=== PATIENT | female | born 1940 | race Caucasian/White ===

== ENCOUNTER 2024-05-04 22:37 | Inpatient (IN) | payer OTHER, SELFPAY ==
--- NOTE | ~2024-05-04 | XR_ITS ---
XR chest PICC line Ordering provider: Elena Hirsch APRN History: 83 years Female with . PICC line placement . Comparison: None. FINDINGS: MEDIASTINUM: The cardiac silhouette is not enlarged. Left PICC line with the tip overlying superior vena cava. LUNGS: No infiltrates, effusions or pneumothorax. Prominent markings are seen bilaterally. Interstiti al thickening is also noted. OTHER: No free air under the diaphragm. Degenerative the spine. IMPRESSION: Left PICC line with the tip overlying superior vena cava. Prominent markings with interstitial changes. Pneumonitis cannot be excluded. Reviewed, dictated and finalized at location A.
--- NOTE | ~2024-05-04 | CT_ITS ---
EXAMINATION: CT brain wo con DATE: 05/05/2024 11:08 INDICATION: Dizziness, nausea, vomiting and hypertension. TECHNIQUE: Computed tomography (CT) of the head was performed without intravenous contrast. Sagittal and coronal reconstructions were performed. The mA was adjusted according to patient size. Iterative reconstruction technique was employed. The dose-length product was 756.67 mGy-cm. COMPARISON: head CT dated 05/04/2024 FINDINGS: No acute intracranial hemorrhage, acute infarction or abnormal extra axial fluid collection. Small ol d lacunar infarct at the left caudate nucleus. There is mild scattered white matter hypoattenuation c onsistent with chronic small vessel ischemic disease. Ventricles are normal and symmetric. No mass/ma ss effect. Intracranial calcified cerebral atherosclerosis is noted. The orbits, paranasal sinuses an d mastoid air cells are normal. IMPRESSION: 1. Small old lacunar infarct at the head of the left caudate nucleus. No acute intracranial process. 2. Mild scattered white matter hypoattenuation consistent with chronic small vessel ischemic disease. Reviewed, dictated and finalized at location A. IMPRESSION: 1. Small old lacunar infarct at the head of the left caudate nucleus. No acute intracranial process. 2. Mild scattered white matter hypoattenuation consistent with chronic small ve ssel ischemic disease.
--- NOTE | ~2024-05-04 | CT_ITS ---
CT brain wo con Ordering provider: Nel Ricks MD History: 83 years Female with . r/o bleed . Comparison: None. Technique: CT of the head without contrast. Radiation reduction technique utilized. FINDINGS: BRAIN PARENCHYMA AND CSF SPACES: Mild leukoaraiosis and diffuse cortical atrophy. Mild atheromatous d isease. No midline shift, mass effect or hemorrhage. The brain parenchyma and CSF spaces are otherwi se normal. VISUALIZED PARANASAL SINUSES: Normal. MASTOIDS: Normal. BONES: Normal. SOFT TISSUES: Visualized nasopharynx is normal. Superficial soft tissues are normal. IMPRESSION: No acute intracranial findings. IMPRESSION: No acute intracranial findings. Reviewed, dictated and finalized at location A. IMPRESSION: No acute intracranial findings.
--- NOTE | ~2024-05-04 | XR_ITS ---
MODIFIED ESOPHAGRAM HISTORY: Recent stroke with dysphagia. TECHNIQUE: Modified barium esophagram was performed on 05/07/2024. I administered fluoroscopy and perf ormed the exam with speech pathologist. Patient was seated for lateral fluoroscopic imaging for prem stion of thin liquids, pudding, solids and quantified amounts, followed by thin liquids in uncontroll ed amounts. This was recorded on tape. A single fluoroscopic spot image was also recorded. The DAP fo r this procedure was 1.047 Gycm2. The amount of fluoroscopy time used during this procedure was 1.3 m inutes. FINDINGS: Oral stage: Adequate function. Pharyngeal stage: Reduced laryngeal elevation, laryngeal adduction and tongue base retraction. There is laryngeal penetration and aspiration with multiple consistencies. Cervical/esophageal stage: Adequate function. IMPRESSION: Enteral dysphagia with laryngeal penetration and aspiration with multiple consistencies. Please correlate with speech pathologist findings and specific feeding recommendations. Reviewed, dictated and finalized at location A. IMPRESSION: Enteral dysphagia with laryngeal penetration and aspiration with mu ltiple consistencies. Please correlate with speech pathologist findings and sp ecific feeding recommendations.
--- NOTE | ~2024-05-04 | XR_ITS ---
XR abdomen gastric tube insert Ordering provider: Xi Julio PA-C History: . NG insertion . Comparison: None. FINDINGS: Nasogastric tube with the tip overlying the stomach. BOWEL: Contrast is seen in the large bowel. Nonobstructive bowel gas pattern. ORGANOMEGALY: None. SIGNIFICANT PATHOLOGIC CALCIFICATIONS: None. OTHER: Degenerative changes in the lower thoracic and upper lumbar area. No free air is seen under th e diaphragm. IMPRESSION: NO ACUTE ABDOMINAL FINDINGS. Reviewed, dictated and finalized at location A.
--- NOTE | ~2024-05-04 | CT_ITS ---
EXAMINATION: CTA BRAIN/CAROTID DATE: 05/05/2024 13:17 INDICATION: Acute stroke TECHNIQUE: Computed tomographic angiography (CTA) of the head and neck was performed with 100 mL Omni paque-350 intravenous contrast. Multiplanar reconstructions and maximum intensity projection 3D-recon structions of the carotid arteries and of the intracranial arteries were created by the technologist on a separate workstation. Automated exposure control and iterative reconstruction technique were emp loyed.The dose-length product was 976.68 mGy-cm. COMPARISON: None. FINDINGS: Carotid arteries: Aortic arch is normal in caliber with no dissection or hemodynamically significant stenosis. There is 20% stenosis of the right carotid bulb relative to normal distal artery lumen diameter (NASCET crite silvino). There is 55% stenosis of the left carotid bulb relative to normal distal artery lumen diameter. The right vertebral artery is mildly dominant with no hemodynamically significant stenosis. There is no significant stenosis of the extracranial portion of the smaller caliber left vertebral artery. Mul tinodular goiter with largest nodule measuring 3.17 in the right thyroid lobe. Small mucous impacted bronchus versus atelectasis extending peripherally from a 405 mm nodule in the superior segment of th e right upper lobe. Moderate cervical spondylosis. Intracranial arteries There is a 1 cm segmental occlusion of the intracranial portion of the left vertebral artery correspo nding to the absent flow void seen on the prior MRI. The dominant right vertebral artery remains aviles nt with no stenosis. There is no hemodynamically significant stenosis in the basilar artery. There is atherosclerotic plaque without hemodynamically significant stenosis at the bilateral carotid siphons . The bilateral A1 and left P1 segments are patent. The right posterior cerebral artery supplied via the right internal carotid artery and a patent right posterior communicating artery. There appears to be a. Patent tiny anterior communicating artery. There are no aneurysms identified. Cerebral arteri al arborization appears symmetric. IMPRESSION: 1. 20% stenosis of the right carotid bulb relative to normal distal artery lumen diameter (NASCET cri teria). 2. 55% stenosis of the left carotid bulb relative to normal distal artery lumen diameter. 3. 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 4. Multinodular goiter with nodules measuring up to 3 cm. Consider thyroid ultrasound for risk certif ication as clinically indicated. 5. Indeterminate 4-5 mm right apical nodule. Consider 1 year follow-up low-dose noncontrast chest CT. Reviewed, dictated and finalized at location A. IMPRESSION: 1. 20% stenosis of the right carotid bulb relative to normal distal artery lume n diameter (NASCET criteria). 2. 55% stenosis of the left carotid bulb relative to normal distal artery lumen diameter. 3. 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 4. Multinodular goiter with nodules measuring up to 3 cm. Consider thyroid ultr asound for risk certification as clinically indicated. 5. Indeterminate 4-5 mm right apical nodule. Consider 1 year follow-up low-dose noncontrast chest CT.
--- NOTE | ~2024-05-04 | XR_ITS ---
MODIFIED ESOPHAGRAM HISTORY: Recent stroke with prior failed modified barium swallow study now for reassessment. TECHNIQUE: Modified barium esophagram was performed on 05/10/2024. I administered fluoroscopy and perf ormed the exam with speech pathologist. Patient was seated for lateral fluoroscopic imaging for prem stion of thin liquids, pudding, solids and quantified amounts, followed by thin liquids in uncontroll ed amounts. This was recorded on tape. A single fluoroscopic spot image was also recorded. The DAP fo r this procedure was 1.088 Gycm2. The amount of fluoroscopy time used during this procedure was 1.4 m inutes. FINDINGS: Oral stage: Adequate function. Pharyngeal stage: Pharyngeal dysphagia with reduced laryngeal elevation and tongue base retraction. T here is vallecular and piriform sinus residue. Laryngeal penetration and aspiration which elicited a cough reflex. Cervical/esophageal stage: Adequate function. IMPRESSION: Pharyngeal dysphagia with laryngeal penetration and non silent aspiration. Please correl ate with speech pathologist findings and specific feeding recommendations. Reviewed, dictated and finalized at location A. IMPRESSION: Pharyngeal dysphagia with laryngeal penetration and non silent aspi ration. Please correlate with speech pathologist findings and specific feeding recommendations.
--- NOTE | ~2024-05-04 | CT_ITS ---
EXAMINATION: CT sinus wo con DATE: 05/12/2024 15:09 INDICATION: Facial and sinus pain TECHNIQUE: Computed tomography (CT) of the paranasal sinuses was performed without intravenous contra st. Coronal reconstructions were obtained. The dose-length product was 303.09 mGy-cm. COMPARISON: None FINDINGS: The paranasal sinuses are clear including the bilateral ostiomeatal units with no mucosal thickening or fluid. Nasal septum is midline. Orbits are normal. Mastoid air cells and middle ear cavities are c lear. Small amount of debris/cerumen at the left external auditory canal. Mild osteoarthritis at the bilateral temporomandibular joints. There are few absent teeth as well as a few dental restorations. Patient has some underbite. Mild osteoarthritis at the atlantoaxial articulation. Mild left-sided and severe right-sided facet osteoarthritis at C2-C3. Atherosclerotic calcifications at the left carotid bulb. Visualized facial soft tissues are otherwise unremarkable. IMPRESSION: 1. Paranasal sinuses are clear. No etiology for reported facial/sinus pain. Reviewed, dictated and finalized at location A.
--- NOTE | ~2024-05-04 | MR_ITS ---
EXAMINATION: MR brain/brain stem wo con DATE: 05/05/2024 11:33 INDICATION: Dizziness, nausea, vomiting and hypertension TECHNIQUE: Magnetic resonance imaging (MRI) of the brain and brainstem was performed without intraven ous contrast. Sequences included sagittal and axial T1-weighted SE, axial diffusion-weighted FS SE, a xial 3D SWAN, axial T2-weighted FLAIR, and axial T2-weighted FSE. Apparent diffusion coefficient (ADC ) maps were created. COMPARISON: Head CT dated 05/04/2024 and 05/05/2024 FINDINGS: Small region of restricted diffusion at the left posterolateral aspect of the medulla consistent with acute infarct. No intracranial hemorrhage or abnormal intracranial mass lesion. There are scattered areas of nonspecific increased T2-weighted signal intensity in the cerebral white matter, predominant ly involving the deep and periventricular white matter which is within normal limits for age. There a re no intraparenchymal signal abnormalities seen on the other pulse sequences. The ventricles are sym metric and normal in size. There are no abnormal extra-axial fluid collections. There is loss of flow void at the left vertebral artery suggesting thrombosis or slow flow. Flow voids are seen in the rem aining cerebral arteries on the T2-weighted sequences consistent with their expected patency. Visuali zed orbits and soft tissues are unremarkable. IMPRESSION: 1. Acute infarct at the posterolateral left medulla likely secondary to occlusion of the left vertebr al artery where there is absent flow void. Correlate clinically for findings of Wallenberg syndrome w hich would include vertigo. 2. Mild scattered nonspecific white matter T2 hyperintensity which is within normal limits for age an d likely sequela of chronic small vessel ischemic disease. Reviewed, dictated and finalized at location A. IMPRESSION: 1. Acute infarct at the posterolateral left medulla likely secondary to occlusi on of the left vertebral artery where there is absent flow void. Correlate clin ically for findings of Wallenberg syndrome which would include vertigo. 2. Mild scattered nonspecific white matter T2 hyperintensity which is within no rmal limits for age and likely sequela of chronic small vessel ischemic disease .
[2024-05-04 22:34] VITALS: BP 255/104; PULSE 59; RESP 15; TEMP 36.9; O2SAT 97
[2024-05-04] MEDS: hydrALAZINE HCL 20 MG/ML VIAL 10 MG IV PUSH (22:51)
--- NOTE | 2024-05-04 23:00 | ECG_ITS ---
Test Date: 2024-05-04 22:38:23 Measurements Intervals [place] Rate: 58 P: 69 [place]: 200 QRS: -5 QRSD: 89 T: 46 QT: 429 QTc: 425 Interpretive Statements SINUS BRADYCARDIA MINIMAL VOLTAGE CRITERIA FOR LVH, CONSIDER NORMAL VARIANT [MEETS CRITERIA IN ONE OF: R(aVL), S(V1), R(V5), R(V5/V6)+S(V1)] No previous ECG available for comparison Electronically Signed On 05-05-2024 12:42:20 CDT by Evan Arnold M.D.
[2024-05-04 23:01] LABS: Basophils Absolute Auto 0.1 K/mm3 (0.0-0.1); Basophils Percent Auto 0.7 % (0.2-1.2); Eosinophils Absolute Auto 0.2 K/mm3 (0-0.3); Eosinophils Percent Auto 2.3 % (0-4.4); Hematocrit 44.9 % (37.0-47.0); Immature Granulocyte Absolute 0.01 K/mm3 (0.00-0.031); Immature Granulocyte Percent A 0.1 % (0-0.5); Lymphocytes Absolute Auto 2.17 K/mm3 (0.9-3.2); Mean Corpuscular HGB Conc 33.4 g/dl (32-36); Mean Corpuscular Hemoglobin 30.1 pg (26-34); Mean Corpuscular Volume 90.2 fl (80-100); Mean Platelet Volume 10.2 fl (7.4-10.4); Monocytes Absolute Auto 0.7 K/mm3 (0.1-0.6); Monocytes Percent Auto 9.9 % (2.6-8.5); Neutrophils Absolute Auto 3.9 K/mm3 (1.3-6.7); Platelet Count Result 205 k/mm3 (150-375); Red Blood Count 4.98 M/mm3 (4.2-5.4); Red Cell Distribution Width 12.7 % (11.5-14.5)
[2024-05-04 23:13] LABS: Alanine Aminotransferase 16 U/L (6-35); Albumin Level 4.5 g/dL (3.5-5.1); Alkaline Phosphatase 90 U/L (38-126); Anion Gap 6 mmol/L (4-12); Aspartate Amino Transferase 27 U/L (14-36); Bilirubin,Total 0.4 mg/dL (0.2-1.3); Blood Urea Nitrogen 20 mg/dL (7-17); Calcium 9.2 mg/dL (8.4-10.2); Carbon Dioxide 31 mmol/L (22-30); Chloride 105 mmol/L (98-107); Estimated Glomerular Filt Rate > 60; Glucose 114 mg/dL (65-110); Magnesium 2.2 mg/dL (1.6-2.3); Potassium 3.6 mmol/L (3.4-5.0); Sodium 142 mmol/L (137-145)
[2024-05-04 23:37] LABS: Influenza A QL RT-PCR Negative (Negative); Influenza B QL RT-PCR Negative (Negative); RSV RNA, RT-PCR Negative (Negative); SARS-CoV-2 RNA PCR Negative (Negative)
--- NOTE | 2024-05-04 23:38 | ED.DIZZY ---
HPI - Dizziness General Chief Complaint: Syncope Stated Complaint: DIZZINESS, HTN, MOSLEY Time Seen by Provider: 05/04/24 22:39 History of Present Illness HPI Narrative: Patient is an 83-year-old female who presents to the emergency department this evening complaining of nausea, vomiting, dizziness which occurred approximately 1 hour prior to arrival. Daughter who is currently present at bedside with the patient's dates the patient has not been feeling well all day. Patient took her blood pressure at home and found that it was over 200 systolic. Patient does have a history of high blood over, and diet control and she has not needed to take any blood pressure medications. Her blood pressure at home has been fairly normal until today. Patient also states that she has been having this headache all day today. Denies any focal weakness, numbness and tingling. Daughter states that the patient is fairly active and swims twice a week. No additional symptoms or concerns at this time. Related Data Allergies Allergy/AdvReac Type Severity Reaction Status Date / Time Penicillins Allergy Severe Anaphylaxis Verified 05/04/24 22:58 codeine AdvReac Intermediate Irritable Verified 05/04/24 22:58 Review of Systems Review of Systems: All systems are reviewed and are negative unless stated otherwise in the HPI. Exam Narrative: General: Alert, awake, afebrile, in no acute distress. HEENT: PERRL, no rhinorrhea, no post nasal drip, oropharynx clear. Cardiovascular: Regular rate and rhythm, no murmurs, rubs or gallops, no peripheral edema. Respiratory: Clear to auscultation bilaterally, no tachypnea, no wheezing, no rhonchi, no rubs, no respiratory distress. Abdomen: Soft, nontender, nondistended, no rebound, no guarding, no peritoneal signs. Musculoskeletal: No joint swelling or deformity, normal muscle tone. Skin: No rashes or petechia, no signs of infection. Neurological: Alert and oriented to person, place, and time. Follows all commands. No focal deficits, speech is clear and fluent. Course Vital Signs Vital signs: Vital Signs Temperature 98.4 F 05/04/24 22:34 Pulse Rate 59 L 05/04/24 22:34 Respiratory Rate 15 05/04/24 22:34 Blood Pressure 255/104 H 05/04/24 22:34 Pulse Oximetry 97 06/12/24 22:34 Oxygen Delivery Room Air 05/04/24 22:34 Temperature 98.4 F 05/04/24 22:34 Pulse Rate 72 05/05/24 01:08 Respiratory Rate 15 05/05/24 01:08 Blood Pressure 155/66 H 05/05/24 01:08 Pulse Oximetry 94 05/05/24 01:08 Oxygen Delivery Room Air 05/04/24 22:34 MDM - Dizziness MDM Narrative Medical decision making narrative: The patient was evaluated by myself in the emergency department. History is obtained from patient who is an independent historian along with daughter present at bedside and physical exam was performed. External medical records were reviewed at this time. IV was established and pertinent tests were ordered. Patient was administered 10 mg of IV Hydralazine for systolic blood pressure of 220. She was also administered 4 mg of IV Zofran for nausea. EKG was obtained which revealed sinus bradycardia rate of 58 beats per minute. No ST changes, T wave inversions or evidence of acute ischemia. EKG was independently interpreted by me and is currently pending official cardiology read. Laboratory results obtained revealing no acute process. Urinalysis did reveal a turbid urine with 3+ leuk esterases in greater than 100 white blood cells. Oral Bactrim DS was ordered at this time given patient's anaphylactic allergy to penicillins. Imaging studies obtained included CT brain without IV contrast which was independently interpreted by me revealing no acute intracranial process, which is pending final radiology interpretation. Differential diagnosis considerations include acute viral syndrome, dehydration, intracranial hemorrhage. Comorbidities impacting this visit include history of hypertension d
[2024-05-05] VITALS (19 sets, daily range): BP systolic 115–206; BP diastolic 54–96; PULSE 67–79; RESP 13–20; TEMP 36.4–37.4; O2SAT 94–99
--- NOTE | 2024-05-05 | ECHO_ITS ---
Patient Info Name: Abimael Killian Age: 83 years : 1940 Gender: Female Ht: 58 in Wt: 119 lbs BSA: 1.50 m2 HR: 79 bpm BP: 180 / 86 mmHg Heart Rhythm: Sinus Rhythm Technical Quality: Good Exam Date: 05/05/2024 9:56 AM Exam Location: Echo Lab Patient Status: Inpatient Admit Date: 05/05/2024 Staff Ordering Physician: Elena Hirsch APRN Editor Sound: [place] RDCS Attending Provider: Elena Hirsch APRN Referring Physician: Torrey QUEVEDO; Exam Type: CA echo doppler color flow Study Info Indications - dizziness - htn Complete two-dimensional, color flow and Doppler transthoracic echocardiogram is performed. Summary 1. Complete two-dimensional, color flow and Doppler transthoracic echocardiogram is performed. 2. Left ventricular chamber dimension is normal. 3. Left ventricular systolic function is normal, estimated at >70%. 4. There is mildly increased left ventricular wall thickness. 5. The left ventricular diastolic function is grade I diastolic dysfunction. 6. Right ventricular systolic function is normal. 7. Left atrial chamber dimension is severely enlarged. 8. There is moderate aortic valve calcification. 9. There is moderate aortic valve stenosis with a peak velocity of 339 cm/s, mean gradient of 21 mmHg, and aortic valve area of 1.2 cm2. Left Ventricle Left ventricular chamber dimension is normal. Left ventricular systolic function is normal, estimated at >70%. There is mildly increased left ventricular wall thickness. The left ventricular diastolic function is grade I diastolic dysfunction. Right Ventricle Right ventricular chamber dimension is normal. Right ventricular systolic function is normal. Left Atria Left atrial chamber dimension is severely enlarged. Right Atria Right atrial chamber dimension is normal. Atrial Septum Intact interatrial septum visualized by color flow imaging. Aortic Valve The aortic valve is probable trileaflet. There is moderate aortic valve stenosis with a peak velocity of 339 cm/s, mean gradient of 21 mmHg, and aortic valve area of 1.2 cm2. There is mild aortic valve regurgitation. There is moderate aortic valve calcification. Pulmonic Valve The pulmonic valve is not well visualized. Mitral Valve There is trace mitral valve regurgitation. Tricuspid Valve There is trace tricuspid valve regurgitation. Pericardium/Pleural There is no pericardial effusion. Inferior Vena Cava Normal inferior vena cava with >50% collapse upon inspiration consistent with normal right atrial pressure, 3 mmHg. Aorta The aortic root size at the sinus of Valsalva is normal. Left Ventricular Outflow Tract Name Value Normal LVOT 2D LVOT Diameter 1.9 cm LVOT Doppler LVOT Peak Gradient 6 mmHg LVOT Mean Gradient 4 mmHg LVOT VTI 31 cm LVOT VTI/AV VTI Ratio 0.4 LVOT Stroke Volume 92 ml LVOT CO 6.5 l/min LVOT CI 4.4 l/min/m2 Pulmonic Valve Name
[2024-05-05 00:26] LABS: Appearance Urine Turbid (Clear); Bacteria Urine None Seen /hpf; Bilirubin Urine Negative (Negative); Blood Urine Negative (Negative); Color Urine Yellow (Yellow); Glucose Urine UA Negative (Negative); Ketones Urine Negative (Negative); Leukocyte Esterase Ur 3+ LEU/UL (Negative); Nitrate Urine Negative (Negative); Non Pathogenic Casts 0-2; Protein Urine Negative (Negative); RBC Urine 0-2 /hpf (0-2); Specific Grav Ur 1.011 (1.001-1.035); Squamous Epithelial Cell Urine None Seen /hpf (Few); Urobilinogen Urine 0.2 mg/dL (<2.0); WBC Urine >100 /hpf (0-3)
[2024-05-05 00:34] LABS: Add Urine Microscopic? YES
[2024-05-05] MEDS: SODIUM CHLORIDE 0.9% IV 1,000 ML 500 ML IV CONT (00:50)
[2024-05-05] MEDS: ONDANSETRON INJ 4 MG/2 ML VIAL IV PUSH (00:50)
[2024-05-05] MEDS: hydrALAZINE HCL 20 MG/ML VIAL 10 MG IV PUSH (00:50)
[2024-05-05] MEDS: SULFAMETHOXAZOLE/TRIMETHOPRIM 400/80 MG TABLET 1 TAB PO (01:02)
[2024-05-05] MEDS: METOCLOPRAMIDE HCL INJ 10 MG/2 ML VIAL IV PUSH (01:13)
[2024-05-05] MEDS: diphenhydrAMINE HCl INJ 50 MG/ML VIAL 25 MG IV PUSH (01:13)
[2024-05-05] MEDS: KETOROLAC 15 MG/ML VIAL (*BKC) IV PUSH (01:32)
--- NOTE | 2024-05-05 03:17 | ADMGEN ---
This patient, Abimael Killian, was admitted to 2 Medical Room 240-01. Patient/family oriented to hospital policies and general routines including ID bracelet, bed and alarms, visiting hours, pain management, procedures, bathroom and other care routines, personal items, smoking policy, room service/diet, and visiting hours. Information on how to activate the Rapid Response Team has been discussed. Patient/Family are encouraged to report perceived risks to care and to ask questions if they do not understand what they are told or what they should do.
[2024-05-05] MEDS: NIFEdipine 30 MG TAB.ER.24 PO (08:51)
[2024-05-05 09:07] LABS: Hematocrit 47.5 % (37.0-47.0); Hemoglobin 15.3 g/dL (12.0-15.0); Mean Corpuscular HGB Conc 32.2 g/dl (32-36); Mean Corpuscular Hemoglobin 29.8 pg (26-34); Mean Corpuscular Volume 92.6 fl (80-100); Mean Platelet Volume 10.8 fl (7.4-10.4); Platelet Count Result 192 k/mm3 (150-375); Red Blood Count 5.13 M/mm3 (4.2-5.4); Red Cell Distribution Width 12.7 % (11.5-14.5); White Blood Count 10.1 K/mm3 (4.5-10.0)
[2024-05-05 09:22] LABS: Alanine Aminotransferase 17 U/L (6-35); Albumin Level 4.4 g/dL (3.5-5.1); Alkaline Phosphatase 82 U/L (38-126); Anion Gap 8 mmol/L (4-12); Aspartate Amino Transferase 31 U/L (14-36); Bilirubin,Total 0.6 mg/dL (0.2-1.3); Blood Urea Nitrogen 14 mg/dL (7-17); Calcium 8.2 mg/dL (8.4-10.2); Carbon Dioxide 26 mmol/L (22-30); Chloride 105 mmol/L (98-107); Cholesterol 244 mg/dL (0-200); Estimated Glomerular Filt Rate > 60; Glucose 124 mg/dL (65-110); HDL Direct 67 mg/dL; Potassium 3.5 mmol/L (3.4-5.0); Sodium 139 mmol/L (137-145); Triglycerides 46 mg/dL (<150)
[2024-05-05 09:31] LABS: LDL Cholesterol Direct 140 mg/dL
[2024-05-05 09:35] LABS: Troponin I 0.102 ng/mL (0.000-0.034)
[2024-05-05 09:36] LABS: Hemoglobin A1C 5.5 % (<5.7)
[2024-05-05] MEDS: LIDOCAINE HCL 2% VISC SOLN 15 ML UDC PO (10:18)
--- NOTE | 2024-05-05 10:19 | ECG_ITS ---
Test Date: 2024-05-05 10:29:32 Measurements Intervals [place] Rate: 71 P: 74 AR: 187 QRS: -1 QRSD: 89 T: 47 QT: 406 QTc: 441 Interpretive Statements SINUS RHYTHM Compared to ECG 05/04/2024 22:38:23 Sinus bradycardia no longer present Electronically Signed On 05-05-2024 12:47:14 CDT by Evan Arnold M.D.
--- NOTE | 2024-05-05 10:46 | PM.IMHP ---
H&P: HPI History of Present Illness Date/Time: 05/05/24 10:46 Chief Complaint: Dizziness/N/V/severe headache Narrative: Patient is a 83 year old female that presented to the ED with complaints of dizziness with severe headache that followed with nausea and vomiting. Patient reports symptoms began prior to arrival to the emergency department. Patient states she was walking up her stairs when she developed a severe headache with dizziness that continue to worsen causing her to vomit. Upon arrival to the emergency department patient's BP was 255/104. Initial CT head negative for any acute intracranial process. Patient states she has no past medical history other than hypertension however she has had controlled with her diet does take multiple supplements at home. Patient denied any visual changes, paraesthesia, weakness, numbness or tingling. Patient was given 2 doses of hydralazine IV push with improvement to BP however continued to a severe headache and nausea vomiting. Upon assessment patient continued to have complaints of headache, dizziness with elevated BP. Attempted to start patient on Procardia however patient vomited shortly after receiving it. Patient denied any chest pain or shortness of breath however due to patient's nausea and vomiting and continued high blood pressure ordered a troponin which was elevated at 0.102 could likely be due to ischemic demand from hypertension however consult Cardiology for any further recommendations will get follow-up troponin. Patient's labs were otherwise unremarkable except for UA as soon leukocytes but no bacteria was given a dose of Bactrim p.o. in ED, reports no urinary symptoms will hold off on ABX therapy at this time. Patient was admitted to the medical unit and placed on telemetry will continue with hypertensive treatment and do a ACS workup and TIA/stroke workup. Review of Systems Review of Systems: All systems reviewed & are unremarkable except as noted in HPI and below [facility] Family History Family History Other Unknown family medical history Social History Social History Smoking status: Never smoker Alcohol intake: never Substance use: never Substance use type: does not use Do You Feel Safe in your Home?: Yes Lack of Transportation: No Lack of Food: Never True Current Housing: I Have Housing Concerned About Future Housing: No Difficulty Paying Gas/Electric Bills: No Difficulty Paying for Meds: No Currently Unemployed: No Education: High School Diploma/GED Difficulty w/ Childcare or Family Care: No Spiritual care concerns: No Meds Home Medications and Allergies Home Medications Medication Instructions Recorded Confirmed Type multivit with minerals-iron 18 1 tablet PO DAILY 05/05/24 05/05/24 History mg-folic ac 400 mcg-vit K 25 mcg tablet (Adults Multivitamin) Allergies Allergy/AdvReac Type Severity Reaction Status Date / Time Penicillins Allergy Severe Anaphylaxis Verified 05/04/24 22:58 codeine AdvReac Intermediate Irritable Verified 05/04/24 22:58 Vital Signs Vital Signs - 24 hr 05/04/24 22:34 05/05/24 00:36 05/05/24 01:08 Temperature 98.4 F Pulse Rate 59 L 67 72 Respiratory Rate 15 17 15 Blood Pressure 255/104 H 186/83 H 155/66 H Pulse Oximetry 97 95 94 Oxygen Delivery Room Air Fraction of Inspired Oxygen 05/05/24 02:08 05/05/24 03:04 05/05/24 03:29 Temperature 98.2 F Pulse Rate 78 69 79 Respiratory Rate 13 15 17 Blood Pressure 143/68 H 140/96 H 149/81 H Pulse Oximetry 95 98 98 Oxygen Delivery Fraction of Inspired Oxygen 05/05/24 04:13 05/05/24 07:37 05/05/24 08:57 Temperature Pulse Rate 79 Respiratory Rate 17 Blood Pressure 180/86 H Pulse Oximetry 98 98 Oxygen Delivery Room Air Room Air Fraction of Inspired Oxygen 21 Exam N
[2024-05-05 11:57] LABS: Troponin I 0.161 ng/mL (0.000-0.034)
--- NOTE | 2024-05-05 12:59 | PM.CNCAR ---
Assessment and Plan Assessment and plan (1) Acute CVA (cerebrovascular accident): Code(s): I63.9 - Cerebral infarction, unspecified Status: Acute Assessment and Plan: Neurology has been consulted. (2) Hypertensive urgency: Code(s): I16.0 - Hypertensive urgency Status: Acute Assessment and Plan: Blood pressures are improved. Patient was started on Nifedipine this morning, however, she threw up right after taking pill. Would recommend to avoid further decreases in blood pressure at this time given acute CVA pending Neurology evaluation. (3) Elevated troponin I level: Code(s): R79.89 - Other specified abnormal findings of blood chemistry Status: Acute Assessment and Plan: Troponins are mildly elevated. EKG without ischemic changes. No chest pain. Echocardiogram with preserved LVEF without appreciable wall motion abnormalities. Does not appear to be an acute coronary syndrome. Likely demand ischemia in setting of acute CVA, hypertensive urgency. (4) Aortic stenosis: Code(s): I35.0 - Nonrheumatic aortic (valve) stenosis Status: Acute Assessment and Plan: Moderate per transthoracic echocardiogram. Recommend outpatient follow up. History of Present Illness History of Present Illness Consult date/time: 05/05/24 12:59 Requesting physician: Elena Hirsch, [facility] Consult reason: Other (Elevated troponins) Reason For Visit: Intractable nausea/vomiting/headache Narrative: We are consulted for elevated troponins. This is an 83 year old female with diet controlled hypertension who presented to ED with weakness, dizziness, severe headache followed by nausea and vomiting. In the ED, her blood pressure was 255/104mmHg. Initial head CT negative. She was given 2 doses of IV Hydralazine with improvement in her blood pressure. Troponins are 0.102, followed by 0.161. Repeat head CT this morning shows small old lacunar infarct at the head of the left caudate nucleus, chronic small vessel ischemic disease. MRI brain shows acute infarct at the posterolateral left medulla likely secondary to occlusion of the left vertebral artery where there is absent flow void. EKGs show sinus rhythm, no ischemic changes. No prior EKGs available for comparison. Review of Systems Review of Systems: All systems reviewed & are unremarkable except as noted in HPI and below (HPI) [facility] Family History Family History Other Unknown family medical history Social History Social History Smoking status: Never smoker Alcohol intake: never Substance use: never Substance use type: does not use Do You Feel Safe in your Home?: Yes Lack of Transportation: No Lack of Food: Never True Current Housing: I Have Housing Concerned About Future Housing: No Difficulty Paying Gas/Electric Bills: No Difficulty Paying for Meds: No Currently Unemployed: No Education: High School Diploma/GED Difficulty w/ Childcare or Family Care: No Spiritual care concerns: No Meds Home Medications and Allergies Home Medications Medication Instructions Recorded Confirmed Type multivit with minerals-iron 18 1 tablet PO DAILY 05/05/24 05/05/24 History mg-folic ac 400 mcg-vit K 25 mcg tablet (Adults Multivitamin) Allergies Allergy/AdvReac Type Severity Reaction Status Date / Time Penicillins Allergy Severe Anaphylaxis Verified 05/04/24 22:58 codeine AdvReac Intermediate Irritable Verified 05/04/24 22:58 Vital Signs Vital Signs - 24 hr 05/04/24 22:34 05/05/24 00:36 05/05/24 01:08 Temperature 36.9 C Pulse Rate 59 L 67 72 Respiratory Rate 15 17 15 Blood Pressure 255/104 H 186/83 H 155/66 H Pulse Oximetry 97 95 94 Oxygen Delivery Room Air Fraction of Inspired Oxygen 05/05/24 02:08 05/05/24 03:04 05/05/24 03:29 Temperature 36.8 C Pulse Rate 78 69 7
[2024-05-05] MEDS: hydrALAZINE HCL 20 MG/ML VIAL IV PUSH (14:05)
[2024-05-05 14:21] LABS: Prothrombin Time 13.2 Seconds (11.1-14.7)
[2024-05-05 14:24] LABS: Troponin I 0.218 ng/mL (0.000-0.034)
[2024-05-05 14:41] LABS: Thyroid Stimulating Hormone 0.259 uIU/mL (0.465-4.680)
[2024-05-05] MEDS: ASPIRIN 81 MG ENTERIC TABLET PO (14:50)
[2024-05-05] MEDS: CLOPIDOGREL BISULFATE 300 MG TABLET PO (14:50)
[2024-05-05] MEDS: IBUPROFEN IV 800 MG/200 ML 800 MG/200 ML BAG 400 MG IVPB (15:46)
[2024-05-05] MEDS: SODIUM CHLORIDE 0.9% IV 250 ML 50 ML IV CONT (15:51)
--- NOTE | 2024-05-05 16:18 | PC.NURSE ---
Patient complaining of left facial numbness and left arm tingling at roughly 0830 this AM. Reported to provider, MRI results showing acute CVA. Neurology consulted. Elevated troponins reported and cardiology consulted. Pt reports increase difficulty swallowing as day progresses, reported to hospitalist. Due to worsening condition, labs, and unstable vitals requested transfer to higher acuity floor. Pt will be transferred to IMU room 232- [facility] faxed at [phone].
--- NOTE | 2024-05-05 16:44 | WPDNEURCNPN ---
Assessment and Plan Assessment and plan (1) Arterial ischemic stroke, vertebrobasilar, brainstem, acute: Code(s): I63.219 - Cerebral infarction due to unspecified occlusion or stenosis of unspecified vertebral artery; I63.22 - Cerebral infarction due to unspecified occlusion or stenosis of basilar artery Status: Acute (2) Hypertensive urgency: Code(s): I16.0 - Hypertensive urgency Status: Acute Plan I have explained the findings to the patient and her family members. I would suggest as follows 1. Physical therapy, occupational therapy and speech therapy. Swallowing can be a problem and this needs to be assessed by the speech therapist for feeding becomes. 2. I reviewed the findings of CT angiogram of the head and neck which shows and narrowing of the left vertebral artery. Unfortunately given her age and stage and the duration since the onset of symptoms and intervention will not be without significant risk. Use of antiplatelets and statin may be recommended at this time as I discussed with Mrs. Hirsch. We can give her loading dose of Plavix and keep her on the aspirin 81 mg a day and atorvastatin 40 mg a day. 3. The patient is to follow up closely with regard to the blood pressure. A sudden drop in blood pressure should be avoided. The goal is to keep it around 170- 180 systolic and diastolic up to 100 for next 2 days and thereafter Further decision based upon the progress. Consult date: 05/05/24 Reason for consult: The patient is a 83-year-old right-handed white female seen for initial neurologic consultation. She presented to the emergency room last night. Around 9:00 a.m. in the evening she developed dizziness which subsequently kept on getting worse that she also felt blurry looking to the left side. Subsequently she had difficulty swallowing and some degree of incoordination with the left side of the body. Never had any symptoms such as this. The headaches also on coming and she was found to have very high blood pressure which is being managed with medications initially his hydralazine and now with labetalol. Patient has had a CT scan of brain initially which did not show any significant abnormalities. 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 Patient denies any history of similar problems in the past. No recent febrile illness or trauma. She denies any diplopia or difficulty finding words or expressing herself. No weakness in the right upper lower limb but has some incoordination the left upper and lower limb. HPI: Abimael Killian is a 83 year old female Review of Systems Review of Systems: All systems reviewed & are unremarkable except as noted in HPI and below Constitutional: Constitutional: Reports no additional constitutional complaints Eyes: Comments: When she turns to the left side she feels there is blurriness of vision but she keeps her head straight she can see on both sides. ENT: Reports system reviewed and no additional complaints, except as documented Cardiovascular: Cardiovascular: Reports no additional cardiovascular complaints Respiratory: Respiratory: Reports no additional respiratory complaints Gastrointestinal: Gastrointestinal: Reports no additional gastrointestinal complaints Genitourinary: Genitourinary: Reports no additional female genitourinary complaints Musculoskeletal: Musculoskeletal: Reports no additional musculoskeletal complaints Neurologic: Reports system reviewed and no additional complaints, except as documented [facility] Past Medical History Medical History (Updated 05/05/24 @ 16:52 by Ankita Serrano MD) Arterial ischemic stroke, vertebrobasilar, brainstem, acute Family History Family History Other Unknown family medical history Social History Social History (Reviewed 05/05/24 @ 16:47 by
--- NOTE | 2024-05-05 17:17 | PC.NURSE ---
This patient, Abimael Killian, was received from [facility] on 05/05/24 at 1701. Patient/family oriented to unit policies and routines
[2024-05-06] VITALS (21 sets, daily range): BP systolic 129–217; BP diastolic 50–103; PULSE 57–79; RESP 12–20; TEMP 36.1–37.1; O2SAT 93–99; BMI 26.0
--- NOTE | 2024-05-06 | ECHO_ITS ---
Patient Info Name: Abimael Killian Age: 83 years : 1940 Gender: Female Ht: 58 in Wt: 124 lbs BSA: 1.53 m2 HR: 68 bpm BP: 173 / 81 mmHg Heart Rhythm: Sinus Rhythm Technical Quality: Fair Exam Date: 05/06/2024 12:48 PM Exam Location: Echo Lab Patient Status: Inpatient Admit Date: 05/05/2024 Staff Ordering Physician: Ro Petty MD Pathology Manager: Ismael Park RDCS Attending Provider: Elena Hirsch APRN Exam Type: CA echo limited w bubble study Study Info Indications - acute stroke Limited two-dimensional transthoracic echocardiogram is performed with agitated saline. Contrast/Agitated Saline Contrast/Ag. Saline: Agitated Saline Amount: 20.00 ml Existing IV Access: Yes Summary 1. Limited exam in the apical four-chamber view with saline contrast injection. 2. No cardiac shunt was identified. 3. Complete echocardiogram done previously. Left Ventricle Left ventricular chamber dimension is normal. Left ventricular systolic function is hyperdynamic, estimated at >70%. Right Ventricle Right ventricular chamber dimension is normal. Left Atria Left atrial chamber dimension is normal. Right Atria Right atrial chamber dimension is not well visualized. Aortic Valve The aortic valve is not well visualized. Pulmonic Valve The pulmonic valve is not well visualized. Mitral Valve The mitral valve has normal leaflets. Tricuspid Valve The tricuspid valve leaflets are normal. Pericardium/Pleural The pericardium appears normal. Aorta The aortic root size at the sinus of Valsalva is not well visualized. Report Signatures
[2024-05-06 04:53] LABS: Troponin I 0.242 ng/mL (0.000-0.034)
--- NOTE | 2024-05-06 07:19 | P.PNIM_ITS ---
Progress Note: A&P Assessment and Plan (1) Elevated troponin I level: Code(s): R79.89 - Other specified abnormal findings of blood chemistry Status: Acute (2) Hypertensive urgency: Code(s): I16.0 - Hypertensive urgency Status: Acute (3) Cephalgia: Code(s): R51.9 - Headache, unspecified Status: Acute (4) Nausea & vomiting: Code(s): R11.2 - Nausea with vomiting, unspecified Status: Acute (5) Dizziness: Code(s): R42 - Dizziness and giddiness Status: Acute (6) Arterial ischemic stroke, vertebrobasilar, brainstem, acute: Code(s): I63.219 - Cerebral infarction due to unspecified occlusion or stenosis of unspecified vertebral artery; I63.22 - Cerebral infarction due to unspecified occlusion or stenosis of basilar artery Status: Acute (7) Aortic stenosis: Code(s): I35.0 - Nonrheumatic aortic (valve) stenosis Status: Acute (8) Acute CVA (cerebrovascular accident): Code(s): I63.9 - Cerebral infarction, unspecified Status: Acute Plan CVA * MRI/CTA show arterial ischemic stroke, vertebrobasilar brainstem * Neuro check q.4 hour for the 1st 24 hours. * classroom monitor and telemetry continuously. * Blood pressure management. -Keep the systolic blood pressure more than 200 or diastolic more than 110. Then lower blood pressure by 15% within the 1st 24 hours. * MRI of the brain without contrast. * PT/OT/ST eval and treat. * Check for LDL and hemoglobin A1c. * Add statins 80 mg q.day, aspirin 81 mg g q.day/Plavix * Patient refuses statin * NPO per speech * Barium swallow to follow * may need PPN until swallowing improves Hypertensive Urgency * 255/104 POA * Given hydralazine IV push 10 mg x 2 in the ED * Procardia 30 mg started * IV hydralazine p.r.n. for systolic over 180 * Echocardiogram * EKG sinus rhythm Elevated troponin * May be secondary to ischemic demand from hypertension * Atypical denies any chest pain or shortness of breath however presents with nausea vomiting, dizziness and hypertensive crisis * serial troponins x3 q.6 hours 0.102/Daily Trop until down trend * EKG without ischemic changes q.6 hours * cardiology consulted * continuous cardiac monitoring Dizziness * Likely secondary to hypertension * CT head with no acute issues * MRI pending * Can try meclizine * If continues can try vestibular PT OT * Patient is an avid swimmer who reports no ear pain Cephalgia * secondary to HTN or dehydration from vomiting? * Toradol PRN * Acetaminophen PRN * Correct BP * CT Head no acute issues * MRI pending * IV fluids Nausea vomiting * Secondary to patient's headache and dizziness * Zofran p.r.n. Code status: Full code per patient DVT prophylaxis: Lovenox Stress ulcer prophylaxis: Protonix 40 daily PT/OT notes: PT/OT pending Disposition: Patient continues admission post Acute CVA of brainstem currently working with ST/PT/OT. Will need exstensive ST for swallowing and follow-up barium swallow prior to advancing diet. Time Spent With Patient Time with patient: 15 - 25 minutes Subjective Date/time seen: 05/06/24 07:19 Interval history: Chief Complaint: Dizziness/N/V/severe headache Narrative: Patient is a 83 year old female that presented to the ED with complaints of dizziness with severe headache that followed with nausea and vomiting. Patient reports
--- NOTE | 2024-05-06 07:19 | PM.IMPN ---
Progress Note: A&P Assessment and Plan (1) Elevated troponin I level: Code(s): R79.89 - Other specified abnormal findings of blood chemistry Status: Acute (2) Hypertensive urgency: Code(s): I16.0 - Hypertensive urgency Status: Acute (3) Cephalgia: Code(s): R51.9 - Headache, unspecified Status: Acute (4) Nausea & vomiting: Code(s): R11.2 - Nausea with vomiting, unspecified Status: Acute (5) Dizziness: Code(s): R42 - Dizziness and giddiness Status: Acute (6) Arterial ischemic stroke, vertebrobasilar, brainstem, acute: Code(s): I63.219 - Cerebral infarction due to unspecified occlusion or stenosis of unspecified vertebral artery; I63.22 - Cerebral infarction due to unspecified occlusion or stenosis of basilar artery Status: Acute (7) Aortic stenosis: Code(s): I35.0 - Nonrheumatic aortic (valve) stenosis Status: Acute (8) Acute CVA (cerebrovascular accident): Code(s): I63.9 - Cerebral infarction, unspecified Status: Acute Plan CVA MRI/CTA show arterial ischemic stroke, vertebrobasilar brainstem Neuro check q.4 hour for the 1st 24 hours. monitoring analyst and telemetry continuously. Blood pressure management. -Keep the systolic blood pressure more than 200 or diastolic more than 110. Then lower blood pressure by 15% within the 1st 24 hours. MRI of the brain without contrast. PT/OT/ST eval and treat. Check for LDL and hemoglobin A1c. Add statins 80 mg q.day, aspirin 81 mg g q.day/Plavix Patient refuses statin NPO per speech Barium swallow to follow may need PPN until swallowing improves Hypertensive Urgency 255/104 POA Given hydralazine IV push 10 mg x 2 in the ED Procardia 30 mg started IV hydralazine p.r.n. for systolic over 180 Echocardiogram EKG sinus rhythm Elevated troponin May be secondary to ischemic demand from hypertension Atypical denies any chest pain or shortness of breath however presents with nausea vomiting, dizziness and hypertensive crisis serial troponins x3 q.6 hours 0.102/Daily Trop until down trend EKG without ischemic changes q.6 hours cardiology consulted continuous cardiac monitoring Dizziness Likely secondary to hypertension CT head with no acute issues MRI pending Can try meclizine If continues can try vestibular PT OT Patient is an avid swimmer who reports no ear pain Cephalgia secondary to HTN or dehydration from vomiting? Toradol PRN Acetaminophen PRN Correct BP CT Head no acute issues MRI pending IV fluids Nausea vomiting Secondary to patient's headache and dizziness Elvira [email or web address].[email or web address]. Code status: Full code per patient DVT prophylaxis: Lovenox Stress ulcer prophylaxis: Protonix 40 daily PT/OT notes: PT/OT pending Disposition: Patient continues admission post Acute CVA of brainstem currently working with ST/PT/OT. Will need exstensive ST for swallowing and follow-up barium swallow prior to advancing diet. Time Spent With Patient Time with patient: 15 - 25 minutes Subjective Date/time seen: 05/06/24 07:19 Interval history: Chief Complaint: Dizziness/N/V/severe headache Narrative: Patient is a 83 year old female that presented to the ED with complaints of dizziness with severe headache that followed with nausea and vomiting. Patient reports symptoms began prior to arrival to the emergency department. Patient states she was walking up her stairs when she developed a severe headache with dizziness that continue to worsen causing her to vomit. Upon arrival to the emergency department patient's BP was 255/104. Initial CT head negative for any acute intracranial process. Patient states she has no past medical history other than hypertension however she has had controlled with her diet does take multiple supplements at home. Patient denied any visual changes, paraesthesia, weakness, numbness
[2024-05-06] MEDS: SODIUM CHLORIDE 0.9% IV 1,000 ML 100 ML IV CONT (08:19)
[2024-05-06] MEDS: ENOXAPARIN 40 MG/0.4 ML SYRINGE SUB-Q (08:20)
[2024-05-06 09:19] LABS: Hematocrit 46.9 % (37.0-47.0); Hemoglobin 15.5 g/dL (12.0-15.0); Mean Corpuscular Hemoglobin 30.8 pg (26-34); Mean Corpuscular Volume 93.1 fl (80-100); Mean Platelet Volume 10.3 fl (7.4-10.4); Platelet Count Result 226 k/mm3 (150-375); Red Blood Count 5.04 M/mm3 (4.2-5.4); Red Cell Distribution Width 13.2 % (11.5-14.5); White Blood Count 11.5 K/mm3 (4.5-10.0)
[2024-05-06 09:42] LABS: Alanine Aminotransferase 16 U/L (6-35); Albumin Level 3.9 g/dL (3.5-5.1); Alkaline Phosphatase 74 U/L (38-126); Anion Gap 5 mmol/L (4-12); Aspartate Amino Transferase 35 U/L (14-36); Bilirubin,Total 0.7 mg/dL (0.2-1.3); Blood Urea Nitrogen 16 mg/dL (7-17); Calcium 8.7 mg/dL (8.4-10.2); Carbon Dioxide 28 mmol/L (22-30); Chloride 106 mmol/L (98-107); Estimated Glomerular Filt Rate > 60; Glucose 98 mg/dL (65-110); Potassium 3.6 mmol/L (3.4-5.0); Sodium 139 mmol/L (137-145)
--- NOTE | 2024-05-06 09:51 | PC.NURSE ---
Attempted to contact daughter, Bridget, via telephone, without success.
--- NOTE | 2024-05-06 10:37 | WPDNEUROPN ---
Progress Note: A&P Assessment and Plan (1) Arterial ischemic stroke, vertebrobasilar, brainstem, acute: Code(s): I63.219 - Cerebral infarction due to unspecified occlusion or stenosis of unspecified vertebral artery; I63.22 - Cerebral infarction due to unspecified occlusion or stenosis of basilar artery Status: Acute (2) Dizziness: Code(s): R42 - Dizziness and giddiness Status: Acute Plan Ms. Killian is an 83 year old female with a history of HTN presenting for evaluation of dizziness. 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 There was some degree of stenosis in the anterior circulation, but there is 1 cm segment occlusion in the L vertebral artery that expalins distribution of stroke. She is not a smoker. A1c is normal. LDL is elevated at 140. - Recommend aspirin 81mg daily and Plavix 75mg daily x 3 months, followed by aspirin monotherapy - Start Lipitor 80mg daily - Allow for permissive hypertension for 48 hrs after stroke, then slowly begin correcting - Obtain bubble study - If bubble study negative, consider 30 day event monitor for evaluation of a fib/a flutter -- she was noted to have severe L atrial enlargement Subjective Date/time seen: 05/06/24 10:37 Interval history: Ms. Killian is an 83 year old female with a history of HTN presenting for evaluation of dizziness. Patient's LKW appears to be sometime on 05/04. She reported that she was feeling unwell all day, with headache and dizziness. She presented to [facility] ED where her initial BP was noted to be 255/104. Her BP was treated and she was admitted for further evaluation. MRI brain showed lateral medullary stroke on the left. CTA brain/carotid showed 20% stenosis in the right carotid bulb, 55% stenosis in the L carotid bulb, and 1 cm segment of occlusion in the L vertebral artery. Her EKG showed sinus rhythm. Echo showed severe L atrial enlargement, and bubble study was not done. Her LDL is 140 from this admission and A1c is 5.5. Most recent BP reading is 173/81. Patient is having double vision and vertigo. Unable to swallow as well. Review of Systems Review of Systems: All systems reviewed & are unremarkable except as noted in HPI and below Exam Const: General: comfortable and no acute distress HENMT: Mouth: Yes moist mucous membranes Eyes: Pupils: Equal, round and reactive pupils present EOM: EOMs intact bilaterally Resp: Effort & Inspection: normal respiratory effort Skin: General skin exam: normal color Neuro: Other: Awake, alert, PERRL, L facial droop, sensation reduced in L face, EOMI, strength is equal in the bilateral upper and lower extremities, sensation reduced over LUE, dysmetria with FNF on the left. Speech is clear. Gait deferred. Extrem: General: normal to inspection Psych: Mental Status: mental status grossly normal Affect: normal affect Objective Data Vital Signs Vital Signs: Vital Signs - 24 hr 05/05/24 12:00 05/05/24 12:19 05/05/24 13:27 Temperature 36.4 C Pulse Rate 75 77 Respiratory Rate 17 Blood Pressure 175/78 H 206/81 H Pulse Oximetry 99 Oxygen Delivery 05/05/24 14:52 05/05/24 13:00 05/05/24 16:00 Temperature Pulse Rate 77 Respiratory Rate Blood Pressure 121/54 L Pulse Oximetry Oxygen Delivery Room Air 05/05/24 18:00 05/05/24 17:10 05/05/24 20:00 Temperature 36.4 C L Pulse Rate 76 73 78 Respiratory Rate 20 Blood Pressure 137/59 L Pulse Oximetry 98 Oxygen Delivery 05/05/24 22:00 05/05/24 20:00 05/05/24 23:47 Temperature 37.4 C Pulse Rate 72 72 70 Respiratory Rate 20 20 Blood Pressure 115/56 L Pulse Oximetry 98 96 Oxygen Delivery Room Air 05/05/24 23:59 05/06/24 00:00 05/06/24 02:00 Temperature Pulse Rate 70 76 79 Respiratory Rate 20 Blood Pressure Pulse Oximetry 96 Oxygen Delivery Room Air 05/06/24 04:00 05/06/24 04:00 05/06/24 05:54 Temperature 36
[2024-05-06 10:45] LABS: Troponin I 0.293 ng/mL (0.000-0.034)
--- NOTE | 2024-05-06 11:47 | PCSTNOTE ---
Please refer to the Bedside Swallow Evaluation in the EMR. Please note, silent aspiration cannot be ruled out at bedside. The above pleasant and cooperative pt was seen for a swallow evaluation at bedside. The pt was positioned upright in the bed; she reported brief dizziness upon repositioning but stated it resolved. She was alert & able to follow commands. She is currently NPO. Pt reported difficulty swallowing saliva; stated it was worse yesterday but feels slightly better today. Oral mucosa is normal; natural dentition is in fair/good condition; missing back teeth. She was able to dry swallow on command which revealed weak laryngeal elevation and a delayed volitional swallow. Vocal vocal quality was clear but weak. She was tested with ice chips and applesauce in controlled & limited amounts. The oral stages appeared functional yet slightly delayed. No oral leakage or pocketing was noted. During the pharyngeal stage, swallow reflex appeared slightly delayed & laryngeal elevation reduced. Immediate overt s/s of aspiration were exhibited, i.e. throat clearing & wet vocal quality. Multiple swallows were noted potentially indicative of pharyngeal residual. At this time, it is felt the pt should remain NPO. It is felt an MBS should be completed possibly tomorrow. Ice chips taken 1-2 at a time is encouraged in order to promote swallowing. This was discussed with the patient and nursing. If it is suspected pt may not adhere to 1-2 ice chips at a time, nursing staff should occasionally offer. ST will follow up with MBS & therapy as appropriate. Thank you for this referral.
[2024-05-06 12:07] LABS: Glucose Point of Care 98 mg/dl (65-105)
[2024-05-06] MEDS: DEXTROSE 5%/0.9% SOD CHL 1,000 ML 100 ML IV CONT (12:12)
[2024-05-06] MEDS: LABETALOL HCL INJ 100 MG/20 ML VIAL 10 MG IV PUSH ×3 (14:32→22:07)
[2024-05-06] MEDS: ONDANSETRON INJ 4 MG/2 ML VIAL IV PUSH (14:36)
--- NOTE | 2024-05-06 16:15 | PC.NURSE ---
LUIS MIGUEL Parker notified of BP, new orders received.
--- NOTE | 2024-05-06 16:55 | PC.NURSE ---
Elena BOLANOS notified of current Blood pressure, RN to recheck blood pressure at 1800.
--- NOTE | 2024-05-06 18:23 | PC.NURSE ---
LUIS MIGUEL Parker notified of blood pressure, no new orders received.
[2024-05-06 20:38] LABS: Glucose Point of Care 95 mg/dl (65-105)
[2024-05-07] VITALS (19 sets, daily range): BP systolic 166–223; BP diastolic 72–95; PULSE 52–78; RESP 14–20; TEMP 36.3–36.7; O2SAT 97–100
[2024-05-07 00:17] LABS: Glucose Point of Care 93 mg/dl (65-105)
[2024-05-07 04:23] LABS: Hematocrit 44.6 % (37.0-47.0); Hemoglobin 14.8 g/dL (12.0-15.0); Mean Corpuscular HGB Conc 33.2 g/dl (32-36); Mean Corpuscular Hemoglobin 30.3 pg (26-34); Mean Corpuscular Volume 91.4 fl (80-100); Mean Platelet Volume 10.1 fl (7.4-10.4); Platelet Count Result 207 k/mm3 (150-375); Red Blood Count 4.88 M/mm3 (4.2-5.4); Red Cell Distribution Width 12.9 % (11.5-14.5); White Blood Count 8.5 K/mm3 (4.5-10.0)
[2024-05-07 05:24] LABS: Alanine Aminotransferase 17 U/L (6-35); Albumin Level 3.8 g/dL (3.5-5.1); Alkaline Phosphatase 65 U/L (38-126); Anion Gap 6 mmol/L (4-12); Aspartate Amino Transferase 31 U/L (14-36); Bilirubin,Total 0.8 mg/dL (0.2-1.3); Blood Urea Nitrogen 12 mg/dL (7-17); Calcium 8.5 mg/dL (8.4-10.2); Carbon Dioxide 26 mmol/L (22-30); Chloride 106 mmol/L (98-107); Estimated Glomerular Filt Rate > 60; Glucose 95 mg/dL (65-110); Sodium 138 mmol/L (137-145)
[2024-05-07] MEDS: LABETALOL HCL INJ 100 MG/20 ML VIAL 10 MG IV PUSH ×2 (06:11→08:27)
--- NOTE | 2024-05-07 08:13 | P.PNIM_ITS ---
Progress Note: A&P Assessment and Plan (1) Elevated troponin I level: Code(s): R79.89 - Other specified abnormal findings of blood chemistry Status: Acute (2) Hypertensive urgency: Code(s): I16.0 - Hypertensive urgency Status: Acute (3) Cephalgia: Code(s): R51.9 - Headache, unspecified Status: Acute (4) Nausea & vomiting: Code(s): R11.2 - Nausea with vomiting, unspecified Status: Acute (5) Dizziness: Code(s): R42 - Dizziness and giddiness Status: Acute (6) Arterial ischemic stroke, vertebrobasilar, brainstem, acute: Code(s): I63.219 - Cerebral infarction due to unspecified occlusion or stenosis of unspecified vertebral artery; I63.22 - Cerebral infarction due to unspecified occlusion or stenosis of basilar artery Status: Acute (7) Aortic stenosis: Code(s): I35.0 - Nonrheumatic aortic (valve) stenosis Status: Acute (8) Acute CVA (cerebrovascular accident): Code(s): I63.9 - Cerebral infarction, unspecified Status: Acute Plan CVA * MRI/CTA show arterial ischemic stroke, vertebrobasilar brainstem * Neuro check q.4 hour for the 1st 24 hours. 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 * Blood pressure management. -Keep the systolic blood pressure more than 200 or diastolic more than 110. Then lower blood pressure by 15% within the 1st 24 hours. * PT/OT/ST eval and treat. * Check for LDL and hemoglobin A1c. * Add statins 80 mg q.day, aspirin 81 mg g q.day/Plavix * Patient refuses statin * NPO per speech * Barium swallow to follow * may need PPN until swallowing improves 05/07 * ST * barium swallow Hypertensive Urgency * 255/104 POA * Given hydralazine IV push 10 mg x 2 in the ED * Procardia 30 mg started * IV hydralazine p.r.n. for systolic over 180 * Echocardiogram * EKG sinus rhythm 05/07 * switched to Labetolol * will start to slowly lower BP * transition to oral BP medication with safely swallowing Elevated troponin * May be secondary to ischemic demand from hypertension * Atypical denies any chest pain or shortness of breath however presents with nausea vomiting, dizziness and hypertensive crisis * serial troponins x3 q.6 hours 0.102/Daily Trop until down trend * EKG without ischemic changes q.6 hours * cardiology consulted * continuous cardiac monitoring Dizziness * Likely secondary to hypertension * CT head with no acute issues * MRI pending * Can try meclizine * If continues can try vestibular PT OT * Patient is an avid swimmer who reports no ear pain Cephalgia * secondary to HTN or dehydration from vomiting? * Toradol PRN * Acetaminophen PRN * Correct BP * CT Head no acute issues * MRI arterial ischemic stroke, vertebrobasilar brainstem * IV fluids Nausea vomiting * Secondary to patient's headache and dizziness * Zofran p.r.n. Code status: Full code per patient DVT prophylaxis: Lovenox Stress ulcer prophylaxis: Protonix 40 daily PT/OT notes: PT/OT pending Disposition: Patient continues admission post Acute CVA of brainstem currently working with ST/PT/OT. Will need extensive ST for swallowing and follow-up barium swallow prior to advancing diet. Time Spent With Patient Time with patient: 15 - 25 minutes Subjective Date/time seen: 05/07/24 08:13 Interval history: Chief Complaint: Dizziness/N/V/severe headache Narrative:
--- NOTE | 2024-05-07 08:13 | PM.IMPN ---
Progress Note: A&P Assessment and Plan (1) Elevated troponin I level: Code(s): R79.89 - Other specified abnormal findings of blood chemistry Status: Acute (2) Hypertensive urgency: Code(s): I16.0 - Hypertensive urgency Status: Acute (3) Cephalgia: Code(s): R51.9 - Headache, unspecified Status: Acute (4) Nausea & vomiting: Code(s): R11.2 - Nausea with vomiting, unspecified Status: Acute (5) Dizziness: Code(s): R42 - Dizziness and giddiness Status: Acute (6) Arterial ischemic stroke, vertebrobasilar, brainstem, acute: Code(s): I63.219 - Cerebral infarction due to unspecified occlusion or stenosis of unspecified vertebral artery; I63.22 - Cerebral infarction due to unspecified occlusion or stenosis of basilar artery Status: Acute (7) Aortic stenosis: Code(s): I35.0 - Nonrheumatic aortic (valve) stenosis Status: Acute (8) Acute CVA (cerebrovascular accident): Code(s): I63.9 - Cerebral infarction, unspecified Status: Acute Plan CVA MRI/CTA show arterial ischemic stroke, vertebrobasilar brainstem Neuro check q.4 hour for the 1st 24 hours. 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 Blood pressure management. -Keep the systolic blood pressure more than 200 or diastolic more than 110. Then lower blood pressure by 15% within the 1st 24 hours. PT/OT/ST eval and treat. Check for LDL and hemoglobin A1c. Add statins 80 mg q.day, aspirin 81 mg g q.day/Plavix Patient refuses statin NPO per speech Barium swallow to follow may need PPN until swallowing improves 05/07 ST barium swallow Hypertensive Urgency 255/104 POA Given hydralazine IV push 10 mg x 2 in the ED Procardia 30 mg started IV hydralazine p.r.n. for systolic over 180 Echocardiogram EKG sinus rhythm 05/07 switched to Labetolol will start to slowly lower BP transition to oral BP medication with safely swallowing Elevated troponin May be secondary to ischemic demand from hypertension Atypical denies any chest pain or shortness of breath however presents with nausea vomiting, dizziness and hypertensive crisis serial troponins x3 q.6 hours 0.102/Daily Trop until down trend EKG without ischemic changes q.6 hours cardiology consulted continuous cardiac monitoring Dizziness Likely secondary to hypertension CT head with no acute issues MRI pending Can try meclizine If continues can try vestibular PT OT Patient is an avid swimmer who reports no ear pain Cephalgia secondary to HTN or dehydration from vomiting? Toradol PRN Acetaminophen PRN Correct BP CT Head no acute issues MRI arterial ischemic stroke, vertebrobasilar brainstem IV fluids Nausea vomiting Secondary to patient's headache and dizziness Zofran p.r.n. Code status: Full code per patient DVT prophylaxis: Lovenox Stress ulcer prophylaxis: Protonix 40 daily PT/OT notes: PT/OT pending Disposition: Patient continues admission post Acute CVA of brainstem currently working with ST/PT/OT. Will need extensive ST for swallowing and follow-up barium swallow prior to advancing diet. Time Spent With Patient Time with patient: 15 - 25 minutes Subjective Date/time seen: 05/07/24 08:13 Interval history: Chief Complaint: Dizziness/N/V/severe headache Narrative: Patient is a 83 year old female that presented to the ED with complaints of dizziness with severe headache that followed with nausea and vomiting. Patient reports symptoms began prior to arrival to the emergency department. Patient states she was walking up her stairs when she developed a severe headache with dizziness that continue to worsen causing her to vomit. Upon arrival to the emergency department patient's BP was 255/104. Initial CT head negative for any acute intracranial process. Patient states she has no past medical history other than hypertension
[2024-05-07] MEDS: ENOXAPARIN 40 MG/0.4 ML SYRINGE SUB-Q (08:28)
[2024-05-07] MEDS: PANTOPRAZOLE SODIUM IV 40 MG VIAL IV PUSH (08:28)
[2024-05-07 09:02] LABS: Magnesium 2.1 mg/dL (1.6-2.3)
[2024-05-07] MEDS: POTASSIUM CHLORIDE INJ 40 MEQ in SODIUM CHLORIDE 0.9% IV 500 ML 130 MEQ IVPB (09:14)
[2024-05-07 12:22] LABS: Glucose Point of Care 84 mg/dl (65-105)
--- NOTE | 2024-05-07 12:30 | PC.NURSE ---
Patient transferred to radiology and back without issue. NPO status maintained.
--- NOTE | 2024-05-07 12:31 | PCSTNOTE ---
Please refer to the Modified Barium Swallow Evaluation in the EMR.
[2024-05-07 13:20] LABS: Magnesium 2.1 mg/dL (1.6-2.3)
[2024-05-07 13:35] LABS: Transferrin 271 mg/dL (206-381)
[2024-05-07] MEDS: LIDOCAINE HCL 1% PF INJ 5 ML VIAL INFILTRATE (13:45)
[2024-05-07] MEDS: CENTRAL LINE FLUSH 10 ML IV PUSH ×2 (14:45→22:00)
[2024-05-07 15:11] LABS: Partial Thromboplastin Time 33.4 Seconds (22.3-36.8)
[2024-05-07 16:59] LABS: Glucose Point of Care 70 mg/dl (65-105)
[2024-05-07] MEDS: LABETALOL HCL INJ 100 MG/20 ML VIAL 20 MG IV PUSH (17:16)
[2024-05-07] MEDS: AMINO ACIDS 5%/DEXTROSE 15% 2,000 ML with MULTIVITAMINS-12 INJ VIAL 1 2.5 ML, MULTIVITA... 40 ML IV CONT (17:18)
[2024-05-07 19:07] LABS: Glucose Point of Care 122 mg/dl (65-105)
[2024-05-08] VITALS (14 sets, daily range): BP systolic 148–196; BP diastolic 74–90; PULSE 48–68; RESP 15–20; TEMP 36.3–36.7; O2SAT 96–100
[2024-05-08 00:56] LABS: Glucose Point of Care 127 mg/dl (65-105)
[2024-05-08] MEDS: LABETALOL HCL INJ 100 MG/20 ML VIAL 20 MG IV PUSH (01:17)
[2024-05-08] MEDS: CENTRAL LINE FLUSH 10 ML IV PUSH ×2 (03:58→19:45)
[2024-05-08 04:18] LABS: Hematocrit 43.4 % (37.0-47.0); Hemoglobin 14.8 g/dL (12.0-15.0); Mean Corpuscular HGB Conc 34.1 g/dl (32-36); Mean Corpuscular Hemoglobin 30.8 pg (26-34); Mean Corpuscular Volume 90.2 fl (80-100); Mean Platelet Volume 10.5 fl (7.4-10.4); Platelet Count Result 204 k/mm3 (150-375); Red Blood Count 4.81 M/mm3 (4.2-5.4); Red Cell Distribution Width 12.8 % (11.5-14.5); White Blood Count 7.9 K/mm3 (4.5-10.0)
[2024-05-08 04:40] LABS: Alanine Aminotransferase 16 U/L (6-35); Albumin Level 3.6 g/dL (3.5-5.1); Alkaline Phosphatase 59 U/L (38-126); Anion Gap 4 mmol/L (4-12); Aspartate Amino Transferase 28 U/L (14-36); Bilirubin,Total 0.8 mg/dL (0.2-1.3); Blood Urea Nitrogen 16 mg/dL (7-17); Calcium 8.5 mg/dL (8.4-10.2); Carbon Dioxide 30 mmol/L (22-30); Chloride 104 mmol/L (98-107); Estimated Glomerular Filt Rate > 60; Glucose 124 mg/dL (65-110); Potassium 3.1 mmol/L (3.4-5.0); Sodium 138 mmol/L (137-145)
--- NOTE | 2024-05-08 08:30 | P.PNIM_ITS ---
Progress Note: A&P Assessment and Plan (1) Elevated troponin I level: Code(s): R79.89 - Other specified abnormal findings of blood chemistry Status: Acute (2) Hypertensive urgency: Code(s): I16.0 - Hypertensive urgency Status: Acute (3) Cephalgia: Code(s): R51.9 - Headache, unspecified Status: Acute (4) Nausea & vomiting: Code(s): R11.2 - Nausea with vomiting, unspecified Status: Acute (5) Dizziness: Code(s): R42 - Dizziness and giddiness Status: Acute (6) Arterial ischemic stroke, vertebrobasilar, brainstem, acute: Code(s): I63.219 - Cerebral infarction due to unspecified occlusion or stenosis of unspecified vertebral artery; I63.22 - Cerebral infarction due to unspecified occlusion or stenosis of basilar artery Status: Acute (7) Aortic stenosis: Code(s): I35.0 - Nonrheumatic aortic (valve) stenosis Status: Acute (8) Acute CVA (cerebrovascular accident): Code(s): I63.9 - Cerebral infarction, unspecified Status: Acute Plan CVA * MRI/CTA show arterial ischemic stroke, vertebrobasilar brainstem * Neuro check q.4 hour for the 1st 24 hours. * panel monitor and telemetry continuously. * Blood pressure management. -Keep the systolic blood pressure more than 200 or diastolic more than 110. Then lower blood pressure by 15% within the 1st 24 hours. * PT/OT/ST eval and treat. * Check for LDL and hemoglobin A1c. * Add statins 80 mg q.day, aspirin 81 mg g q.day/Plavix * Patient refuses statin * NPO per speech * Barium swallow to follow * may need PPN until swallowing improves 05/07 * ST * barium swallow 05/08: * PICC placed * TPN * ST * f/u MBS in 3-4 days * if no improvement may need peg tube placed Hypertensive Urgency * 255/104 POA * Given hydralazine IV push 10 mg x 2 in the ED * Procardia 30 mg started * IV hydralazine p.r.n. for systolic over 180 * Echocardiogram * EKG sinus rhythm 05/07 * switched to Labetolol * will start to slowly lower BP * transition to oral BP medication when safely swallowing Elevated troponin * May be secondary to ischemic demand from hypertension * Atypical denies any chest pain or shortness of breath however presents with nausea vomiting, dizziness and hypertensive crisis * serial troponins x3 q.6 hours 0.102/Daily Trop until down trend * EKG without ischemic changes q.6 hours * cardiology consulted * continuous cardiac monitoring Dizziness * Likely secondary to hypertension * CT head with no acute issues * MRI pending * Can try meclizine * If continues can try vestibular PT OT * Patient is an avid swimmer who reports no ear pain Cephalgia * secondary to HTN or dehydration from vomiting? * Toradol PRN * Acetaminophen PRN * Correct BP * CT Head no acute issues * MRI arterial ischemic stroke, vertebrobasilar brainstem * IV fluids Nausea vomiting * Secondary to patient's headache and dizziness * Zofran p.r.n. Code status: Full code per patient DVT prophylaxis: Lovenox Stress ulcer prophylaxis: Protonix 40 daily PT/OT notes: PT/OT pending Disposition: Patient continues admission post Acute CVA of brainstem currently working with ST/PT/OT. Will need extensive ST for swallowing and follow-up barium swallow prior to advancing diet. Time Spent With Patient Time with patient: 15 - 25 minutes Subjective Date/time seen: 05/08/24
--- NOTE | 2024-05-08 08:30 | PM.IMPN ---
Progress Note: A&P Assessment and Plan (1) Elevated troponin I level: Code(s): R79.89 - Other specified abnormal findings of blood chemistry Status: Acute (2) Hypertensive urgency: Code(s): I16.0 - Hypertensive urgency Status: Acute (3) Cephalgia: Code(s): R51.9 - Headache, unspecified Status: Acute (4) Nausea & vomiting: Code(s): R11.2 - Nausea with vomiting, unspecified Status: Acute (5) Dizziness: Code(s): R42 - Dizziness and giddiness Status: Acute (6) Arterial ischemic stroke, vertebrobasilar, brainstem, acute: Code(s): I63.219 - Cerebral infarction due to unspecified occlusion or stenosis of unspecified vertebral artery; I63.22 - Cerebral infarction due to unspecified occlusion or stenosis of basilar artery Status: Acute (7) Aortic stenosis: Code(s): I35.0 - Nonrheumatic aortic (valve) stenosis Status: Acute (8) Acute CVA (cerebrovascular accident): Code(s): I63.9 - Cerebral infarction, unspecified Status: Acute Plan CVA MRI/CTA show arterial ischemic stroke, vertebrobasilar brainstem Neuro check q.4 hour for the 1st 24 hours. air sampling and monitoring and telemetry continuously. Blood pressure management. -Keep the systolic blood pressure more than 200 or diastolic more than 110. Then lower blood pressure by 15% within the 1st 24 hours. PT/OT/ST eval and treat. Check for LDL and hemoglobin A1c. Add statins 80 mg q.day, aspirin 81 mg g q.day/Plavix Patient refuses statin NPO per speech Barium swallow to follow may need PPN until swallowing improves 05/07 ST barium swallow 05/08: PICC placed TPN ST f/u MBS in 3-4 days if no improvement may need peg tube placed Hypertensive Urgency 255/104 POA Given hydralazine IV push 10 mg x 2 in the ED Procardia 30 mg started IV hydralazine p.r.n. for systolic over 180 Echocardiogram EKG sinus rhythm 05/07 switched to Labetolol will start to slowly lower BP transition to oral BP medication when safely swallowing Elevated troponin May be secondary to ischemic demand from hypertension Atypical denies any chest pain or shortness of breath however presents with nausea vomiting, dizziness and hypertensive crisis serial troponins x3 q.6 hours 0.102/Daily Trop until down trend EKG without ischemic changes q.6 hours cardiology consulted continuous cardiac monitoring Dizziness Likely secondary to hypertension CT head with no acute issues MRI pending Can try meclizine If continues can try vestibular PT OT Patient is an avid swimmer who reports no ear pain Cephalgia secondary to HTN or dehydration from vomiting? Toradol PRN Acetaminophen PRN Correct BP CT Head no acute issues MRI arterial ischemic stroke, vertebrobasilar brainstem IV fluids Nausea vomiting Secondary to patient's headache and dizziness Zofran p.r.n. Code status: Full code per patient DVT prophylaxis: Lovenox Stress ulcer prophylaxis: Protonix 40 daily PT/OT notes: PT/OT pending Disposition: Patient continues admission post Acute CVA of brainstem currently working with ST/PT/OT. Will need extensive ST for swallowing and follow-up barium swallow prior to advancing diet. Time Spent With Patient Time with patient: 15 - 25 minutes Subjective Date/time seen: 05/08/24 08:30 Interval history: Chief Complaint: Dizziness/N/V/severe headache Narrative: Patient is a 83 year old female that presented to the ED with complaints of dizziness with severe headache that followed with nausea and vomiting. Patient reports symptoms began prior to arrival to the emergency department. Patient states she was walking up her stairs when she developed a severe headache with dizziness that continue to worsen causing her to vomit. Upon arrival to the emergency department patient's BP was 255/104. Initial CT head negative for any
[2024-05-08] MEDS: ENOXAPARIN 40 MG/0.4 ML SYRINGE SUB-Q (09:08)
[2024-05-08] MEDS: PANTOPRAZOLE SODIUM IV 40 MG VIAL IV PUSH (09:08)
--- NOTE | 2024-05-08 09:47 | WPDNEUROPN ---
Progress Note: A&P Assessment and Plan (1) Arterial ischemic stroke, vertebrobasilar, brainstem, acute: Code(s): I63.219 - Cerebral infarction due to unspecified occlusion or stenosis of unspecified vertebral artery; I63.22 - Cerebral infarction due to unspecified occlusion or stenosis of basilar artery Status: Acute (2) Dizziness: Code(s): R42 - Dizziness and giddiness Status: Acute Plan Ms. Killian is an 83 year old female with a history of HTN presenting for evaluation of dizziness. 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 There was some degree of stenosis in the anterior circulation, but there is 1 cm segment occlusion in the L vertebral artery that explains distribution of stroke. She is not a smoker. A1c is normal. LDL is elevated at 140. - Recommend aspirin 81mg daily and Plavix 75mg daily x 3 months, followed by aspirin monotherapy - Recommend Lipitor 80mg daily -- patient is declining. Will need to have discussion with PCP regarding other options. Goal LDL is <70. I discussed my concerns with patient regarding need for lipid lowering therapy. - Ok to slowly normalize BP - Prior to discharge, obtain 30 day event monitor for evaluation of a fib/a flutter -- she was noted to have severe L atrial enlargement Subjective Date/time seen: 05/08/24 09:47 Interval history: Ms. Killian is an 83 year old female with a history of HTN presenting for evaluation of dizziness. Patient's LKW appears to be sometime on 05/04. She reported that she was feeling unwell all day, with headache and dizziness. She presented to [facility] ED where her initial BP was noted to be 255/104. Her BP was treated and she was admitted for further evaluation. MRI brain showed lateral medullary stroke on the left. CTA brain/carotid showed 20% stenosis in the right carotid bulb, 55% stenosis in the L carotid bulb, and 1 cm segment of occlusion in the L vertebral artery. Her EKG showed sinus rhythm. Echo showed severe L atrial enlargement, and bubble study was negative for shunt. Her LDL is 140 from this admission and A1c is 5.5. Most recent BP reading is 158/90. She is still reporting double vision and vertigo. She is declining statin. Review of Systems Review of Systems: All systems reviewed & are unremarkable except as noted in HPI and below Exam Const: General: comfortable and no acute distress HENMT: Mouth: Yes moist mucous membranes Eyes: Pupils: Equal, round and reactive pupils present EOM: EOMs intact bilaterally Resp: Effort & Inspection: normal respiratory effort Skin: General skin exam: normal color Neuro: Other: Awake, alert, PERRL, L facial droop, sensation reduced in L face, EOMI, strength is equal in the bilateral upper and lower extremities, sensation reduced over LUE, dysmetria with FNF on the left. Speech is clear. Gait deferred. Extrem: General: normal to inspection Psych: Mental Status: mental status grossly normal Affect: normal affect Objective Data Vital Signs Vital Signs: Vital Signs - 24 hr 05/07/24 10:00 05/07/24 12:00 05/07/24 12:00 Temperature 36.7 C Pulse Rate 60 53 L 56 L Respiratory Rate 20 Blood Pressure 201/74 H Pulse Oximetry 100 Oxygen Delivery Fraction of Inspired Oxygen 05/07/24 12:00 05/07/24 14:00 05/07/24 14:18 Temperature Pulse Rate 58 L 61 Respiratory Rate Blood Pressure 172/91 H Pulse Oximetry 100 Oxygen Delivery Room Air Fraction of Inspired Oxygen 21 05/07/24 16:18 05/07/24 17:16 05/07/24 17:45 Temperature 36.3 C L Pulse Rate 57 L 59 L 53 L Respiratory Rate 14 Blood Pressure 223/85 H 190/72 H Pulse Oximetry 98 Oxygen Delivery Fraction of Inspired Oxygen 05/07/24 16:00 05/07/24 16:00 05/07/24 18:00 Temperature Pulse Rate 61 52 L Respiratory Rate Blood Pressure Pulse Oximetry 100 Oxygen Delivery Room Air Fraction of Inspired Oxygen 13 05
[2024-05-08] MEDS: POTASSIUM CHLORIDE INJ 40 MEQ in SODIUM CHLORIDE 0.9% IV 500 ML 130 MEQ IVPB (10:21)
[2024-05-08 12:14] LABS: Triglycerides 128 mg/dL (<150)
[2024-05-08 12:29] LABS: Glucose Point of Care 126 mg/dl (65-105)
[2024-05-08 18:45] LABS: Glucose Point of Care 116 mg/dl (65-105)
[2024-05-09] VITALS (16 sets, daily range): BP systolic 131–197; BP diastolic 67–83; PULSE 55–625; RESP 18–28; TEMP 36.6–36.9; O2SAT 97–98; BMI 26.0
[2024-05-09] MEDS: CENTRAL LINE FLUSH 10 ML IV PUSH ×3 (04:08→22:28)
[2024-05-09 04:23] LABS: Hematocrit 44.3 % (37.0-47.0); Hemoglobin 14.8 g/dL (12.0-15.0); Mean Corpuscular HGB Conc 33.4 g/dl (32-36); Mean Corpuscular Hemoglobin 30.5 pg (26-34); Mean Corpuscular Volume 91.3 fl (80-100); Mean Platelet Volume 10.4 fl (7.4-10.4); Platelet Count Result 198 k/mm3 (150-375); Red Blood Count 4.85 M/mm3 (4.2-5.4); Red Cell Distribution Width 12.8 % (11.5-14.5)
[2024-05-09 04:29] LABS: Prothrombin Time 13.8 Seconds (11.1-14.7)
[2024-05-09 04:30] LABS: Partial Thromboplastin Time 27.3 Seconds (22.3-36.8)
[2024-05-09 05:01] LABS: Alanine Aminotransferase 14 U/L (6-35); Albumin Level 3.4 g/dL (3.5-5.1); Alkaline Phosphatase 55 U/L (38-126); Anion Gap 1 mmol/L (4-12); Aspartate Amino Transferase 24 U/L (14-36); Bilirubin,Total 0.7 mg/dL (0.2-1.3); Blood Urea Nitrogen 17 mg/dL (7-17); Calcium 8.6 mg/dL (8.4-10.2); Carbon Dioxide 30 mmol/L (22-30); Chloride 109 mmol/L (98-107); Estimated Glomerular Filt Rate > 60; Glucose 112 mg/dL (65-110); Magnesium 1.9 mg/dL (1.6-2.3); Phosphorus 2.7 mg/dL (2.5-4.5); Potassium 3.1 mmol/L (3.4-5.0); Sodium 140 mmol/L (137-145); Transferrin 189 mg/dL (206-381)
[2024-05-09] MEDS: POTASSIUM CHLORIDE INJ 40 MEQ in SODIUM CHLORIDE 0.9% IV 500 ML 130 MEQ IVPB (10:34)
[2024-05-09] MEDS: ENOXAPARIN 40 MG/0.4 ML SYRINGE SUB-Q (10:35)
[2024-05-09] MEDS: PANTOPRAZOLE SODIUM IV 40 MG VIAL IV PUSH (10:35)
[2024-05-09 12:02] LABS: Glucose Point of Care 113 mg/dl (65-105)
--- NOTE | 2024-05-09 13:51 | P.PNIM_ITS ---
Progress Note: A&P Assessment and Plan (1) Arterial ischemic stroke, vertebrobasilar, brainstem, acute: Code(s): I63.219 - Cerebral infarction due to unspecified occlusion or stenosis of unspecified vertebral artery; I63.22 - Cerebral infarction due to unspecified occlusion or stenosis of basilar artery Status: Acute Assessment and Plan: MRI/CTA show arterial ischemic stroke, vertebrobasilar brainstem * cafeteria monitor and telemetry continuously. * Blood pressure management. -Keep the systolic blood pressure more than 200 or diastolic more than 110. Then lower blood pressure by 15% within the 1st 24 h ours. * PT/OT/ST eval and treat. * LDL 140 and hemoglobin A1c WNL. * Add statins 80 mg q.day, aspirin 81 mg g q.day/Plavix * Patient refuses statin * Barium swallow 05/07, patient failed BMS * PICC placed on 05/08 and TPN started * Speech therapy working with patient. f/u MBS in 3-4 days * If no improvement may need peg tube placed (2) Acute CVA (cerebrovascular accident): Code(s): I63.9 - Cerebral infarction, unspecified Status: Acute Assessment and Plan: See above. (3) Aortic stenosis: Code(s): I35.0 - Nonrheumatic aortic (valve) stenosis Status: Chronic Assessment and Plan: chronic (4) Hypertensive urgency: Code(s): I16.0 - Hypertensive urgency Status: Acute Assessment and Plan: * 255/104 POA * Given hydralazine IV push 10 mg x 2 in the ED * IV hydralazine p.r.n. for systolic over 180 * Echocardiogram EF > 70% * EKG sinus rhythm * 05/07 procardia switched to Labetolol due to patient unable to take p.o. medications * will start to slowly lower BP * transition to oral BP medication when safely swallowing (5) Cephalgia: Code(s): R51.9 - Headache, unspecified Status: Resolved Assessment and Plan: secondary to HTN or dehydration from vomiting? * Analgesics as needed. * Correct BP * CT Head no acute issues * MRI arterial ischemic stroke, vertebrobasilar brainstem (6) Elevated troponin I level: Code(s): R79.89 - Other specified abnormal findings of blood chemistry Status: Resolved Assessment and Plan: May be secondary to ischemic demand from hypertension * Atypical denies any chest pain or shortness of breath however presents with nausea vomiting, dizziness and hypertensive crisis * serial troponin x3 q.6 hours 0.102/Daily Trop until down trend * EKG without ischemic changes q.6 hours * cardiology consulted * continuous cardiac monitoring RESOLVED Subjective Date/time seen: 05/09/24 13:51 Interval history: Patient doing well today with no new complaints. She is still pretty weak but continues to work with therapy. Plan for repeat MBS in the next day or 2. Exam Narrative: GENERAL: Comfortable, no acute distress HENMT: moist mucous membranes EYES: EOM intact b/l NECK: no lymphadenopathy RESPIRATORY: clear to auscultation, no increased respiratory effort CARDIO: Regular rate and rhythm, murmur present GI: soft, nontender, bowel sounds present SKIN/EXTREMITIES: no rashes, no edema, no redness or tenderness NEURO: PROM intact, answers questions appropriately, A&O x4 Objective Data Vital Signs Vital Signs: Vital Signs - 24 hr 05/08/24 14:00 05/08/24 16:00 05/08/24 16:00 Temperature 98.1 F
--- NOTE | 2024-05-09 13:51 | PM.IMPN ---
Progress Note: A&P Assessment and Plan (1) Arterial ischemic stroke, vertebrobasilar, brainstem, acute: Code(s): I63.219 - Cerebral infarction due to unspecified occlusion or stenosis of unspecified vertebral artery; I63.22 - Cerebral infarction due to unspecified occlusion or stenosis of basilar artery Status: Acute Assessment and Plan: MRI/CTA show arterial ischemic stroke, vertebrobasilar brainstem school lunch monitor and telemetry continuously. Blood pressure management. -Keep the systolic blood pressure more than 200 or diastolic more than 110. Then lower blood pressure by 15% within the 1st 24 hours. PT/OT/ST eval and treat. LDL 140 and hemoglobin A1c WNL. Add statins 80 mg q.day, aspirin 81 mg g q.day/Plavix Patient refuses statin Barium swallow 05/07, patient failed BMS PICC placed on 05/08 and TPN started Speech therapy working with patient. f/u MBS in 3-4 days If no improvement may need peg tube placed (2) Acute CVA (cerebrovascular accident): Code(s): I63.9 - Cerebral infarction, unspecified Status: Acute Assessment and Plan: See above. (3) Aortic stenosis: Code(s): I35.0 - Nonrheumatic aortic (valve) stenosis Status: Chronic Assessment and Plan: chronic (4) Hypertensive urgency: Code(s): I16.0 - Hypertensive urgency Status: Acute Assessment and Plan: 255/104 POA Given hydralazine IV push 10 mg x 2 in the ED IV hydralazine p.r.n. for systolic over 180 Echocardiogram EF > 70% EKG sinus rhythm 05/07 procardia switched to Labetolol due to patient unable to take p.o. medications will start to slowly lower BP transition to oral BP medication when safely swallowing (5) Cephalgia: Code(s): R51.9 - Headache, unspecified Status: Resolved Assessment and Plan: secondary to HTN or dehydration from vomiting? Analgesics as needed. Correct BP CT Head no acute issues MRI arterial ischemic stroke, vertebrobasilar brainstem (6) Elevated troponin I level: Code(s): R79.89 - Other specified abnormal findings of blood chemistry Status: Resolved Assessment and Plan: May be secondary to ischemic demand from hypertension Atypical denies any chest pain or shortness of breath however presents with nausea vomiting, dizziness and hypertensive crisis serial troponin x3 q.6 hours 0.102/Daily Trop until down trend EKG without ischemic changes q.6 hours cardiology consulted continuous cardiac monitoring RESOLVED Subjective Date/time seen: 05/09/24 13:51 Interval history: Patient doing well today with no new complaints. She is still pretty weak but continues to work with therapy. Plan for repeat MBS in the next day or 2. Exam Narrative: GENERAL: Comfortable, no acute distress HENMT: moist mucous membranes EYES: EOM intact b/l NECK: no lymphadenopathy RESPIRATORY: clear to auscultation, no increased respiratory effort CARDIO: Regular rate and rhythm, murmur present GI: soft, nontender, bowel sounds present SKIN/EXTREMITIES: no rashes, no edema, no redness or tenderness NEURO: PROM intact, answers questions appropriately, A&O x4 Objective Data Vital Signs Vital Signs: Vital Signs - 24 hr 05/08/24 14:00 05/08/24 16:00 05/08/24 16:00 Temperature 98.1 F Pulse Rate 55 L 54 L 58 L Respiratory Rate 16 Blood Pressure 169/82 H Pulse Oximetry 97 Oxygen Delivery Fraction of Inspired Oxygen 05/08/24 16:00 05/08/24 20:00 05/08/24 20:00 Temperature Pulse Rate 58 L 60 Respiratory Rate 16 Blood Pressure Pulse Oximetry 97 Oxygen Delivery Room Air Room Air Fraction of Inspired Oxygen 21 05/08/24 21:33 05/08/24 22:00 05/08/24 23:47 Temperature 98.0 F 98.1 F Pulse Rate 56 L 63 61 Respiratory Rate 20 18 Blood Pressure 189/85 H 158/82 H Pulse Oximetry 100 96 Oxygen Delivery Fraction of Inspired Ox
[2024-05-09] MEDS: AMINO ACIDS 5%/DEXTROSE 15% 2,000 ML with MULTIVITAMINS-12 INJ VIAL 1 2.5 ML, MULTIVITA... 40 ML IV CONT (16:08)
--- NOTE | 2024-05-09 17:31 | WPDNEUROPN ---
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 This appears a major concern. I spoke to her about the use of a statin but she does not want to take it. I have advised to discuss with family physician regarding other alternate options. Subjective Date/time seen: 05/09/24 17:31 Interval history: Patient reports improvement in diplopia and dizziness however she continues to have difficulty swallowing. When I came to see her the speech therapist was seeing her. She failed swallowing evaluation 2 days ago and has been on NPO and get Britt nutrition through the IV route for now. The patient refuses taking statins. However she is on aspirin and Plavix. Review of Systems Review of Systems: All systems reviewed & are unremarkable except as noted in HPI and below Exam Narrative: Fully conscious alert oriented to self time place and person. No significant dysarthria. Coordination finger-nose appears normal. Rapid alternating movements of the hands appeared comparable on both sides. Weakness in upper lower limbs at this time. Objective Data Vital Signs Vital Signs: Vital Signs - 24 hr 05/08/24 20:00 05/08/24 20:00 05/08/24 21:33 Temperature 36.7 C Pulse Rate 60 56 L Respiratory Rate 20 Blood Pressure 189/85 H Pulse Oximetry 100 Oxygen Delivery Room Air 05/08/24 22:00 05/08/24 23:47 05/09/24 00:00 Temperature 36.7 C Pulse Rate 63 61 61 Respiratory Rate 18 Blood Pressure 158/82 H Pulse Oximetry 96 Oxygen Delivery 05/09/24 00:00 05/09/24 04:00 05/09/24 02:00 Temperature 36.6 C Pulse Rate 63 61 Respiratory Rate 18 Blood Pressure 175/78 H Pulse Oximetry 97 Oxygen Delivery Room Air 05/09/24 04:00 05/09/24 06:00 05/09/24 04:00 Temperature Pulse Rate 65 61 Respiratory Rate Blood Pressure Pulse Oximetry Oxygen Delivery Room Air 05/09/24 08:01 05/09/24 09:52 05/09/24 11:41 Temperature 36.8 C 36.9 C Pulse Rate 61 64 Respiratory Rate 28 H 20 Blood Pressure 172/78 H 131/79 Pulse Oximetry 97 98 Oxygen Delivery Room Air 05/09/24 08:00 05/09/24 12:00 05/09/24 08:00 Temperature Pulse Rate 59 L Respiratory Rate Blood Pressure Pulse Oximetry Oxygen Delivery Room Air Room Air 05/09/24 10:00 05/09/24 12:00 05/09/24 14:00 Temperature Pulse Rate 58 L 63 55 L Respiratory Rate Blood Pressure Pulse Oximetry Oxygen Delivery 05/09/24 15:23 05/09/24 16:00 Temperature 36.6 C Pulse Rate 625 H Respiratory Rate Blood Pressure 197/67 H Pulse Oximetry 98 Oxygen Delivery Room Air Intake/Output Intake/Output: Intake & Output 05/06/24 05/07/24 05/08/24 05/09/24 23:59 23:59 23:59 23:59 Intake Total 841.7 520 1873.3 Output Total 351 3724 711 2296 Balance 490.7 -980 -300 573.3 Meds/Results Medications: Active Medications Generic Name Dose Route Start Last Admin Trade Name Freq PRN Reason Stop Dose Admin Acetaminophen 1,000 mg 05/05/24 03:41 Acetaminophen 500 Mg Tablet PO Q6H PRN Mild Pain (1-3) or Fever Aspirin 81 mg 05/05/24 14:20 05/09/24 10:31 Aspirin 81 Mg Enteric Tablet PO Not Given QAM [facility] Clopidogrel Bisulfate 75 mg 05/06/24 09:00 05/09/24 10:31 Clopidogrel Bisulfate 75 Mg Tablet PO Not Given QAM [facility] Dextrose 12.5 gm 05/06/24 11:38 Dextrose 50% 25 Gm/50 Ml Syringe IV PUSH PRN PRN Hypoglycemia Protocol Enoxaparin Sodium 40 mg 05/06/24 09:00 05/09/24
[2024-05-09 18:17] LABS: Cholesterol 199 mg/dL (0-200); HDL Direct 43 mg/dL; Triglycerides 145 mg/dL (<150)
[2024-05-09 18:28] LABS: LDL Cholesterol Direct 113 mg/dL
[2024-05-09 18:53] LABS: Glucose Point of Care 112 mg/dl (65-105)
[2024-05-09 19:23] LABS: Folic Acid 6.8 ng/mL (2.76->20)
[2024-05-09 20:12] LABS: Vitamin D 25 Hydroxy 41.2 ng/mL
[2024-05-10] VITALS (16 sets, daily range): BP systolic 154–213; BP diastolic 67–82; PULSE 55–67; RESP 14–24; TEMP 36.1–37.6; O2SAT 96–100
[2024-05-10 00:22] LABS: Glucose Point of Care 150 mg/dl (65-105)
[2024-05-10] MEDS: CENTRAL LINE FLUSH 10 ML IV PUSH ×3 (05:38→20:15)
[2024-05-10] MEDS: CENTRAL LINE FLUSH 20 ML IV PUSH (05:38)
[2024-05-10 06:05] LABS: Hematocrit 45.1 % (37.0-47.0); Hemoglobin 14.9 g/dL (12.0-15.0); Mean Corpuscular Hemoglobin 30.5 pg (26-34); Mean Corpuscular Volume 92.2 fl (80-100); Mean Platelet Volume 10.5 fl (7.4-10.4); Platelet Count Result 201 k/mm3 (150-375); Red Blood Count 4.89 M/mm3 (4.2-5.4); Red Cell Distribution Width 12.6 % (11.5-14.5); White Blood Count 7.4 K/mm3 (4.5-10.0)
[2024-05-10 06:06] LABS: Glucose Point of Care 114 mg/dl (65-105)
[2024-05-10 06:22] LABS: Alanine Aminotransferase 23 U/L (6-35); Albumin Level 3.6 g/dL (3.5-5.1); Alkaline Phosphatase 59 U/L (38-126); Anion Gap 5 mmol/L (4-12); Aspartate Amino Transferase 35 U/L (14-36); Bilirubin,Total 0.8 mg/dL (0.2-1.3); Blood Urea Nitrogen 16 mg/dL (7-17); Calcium 8.7 mg/dL (8.4-10.2); Carbon Dioxide 28 mmol/L (22-30); Chloride 108 mmol/L (98-107); Estimated Glomerular Filt Rate > 60; Glucose 106 mg/dL (65-110); Phosphorus 3.1 mg/dL (2.5-4.5); Potassium 3.2 mmol/L (3.4-5.0); Sodium 141 mmol/L (137-145)
[2024-05-10] MEDS: POTASSIUM CHLORIDE INJ 40 MEQ in SODIUM CHLORIDE 0.9% IV 500 ML 130 MEQ IVPB (08:08)
[2024-05-10] MEDS: PANTOPRAZOLE SODIUM IV 40 MG VIAL IV PUSH (08:09)
[2024-05-10] MEDS: ENOXAPARIN 40 MG/0.4 ML SYRINGE SUB-Q (08:10)
--- NOTE | 2024-05-10 10:20 | PCNFU ---
Addendum entered by Milena Berger RD, LDN 05/10/24 13:06: Pt completed another MBS today and failed. Speech recommending alternative nutrition support and likely to be needed for several weeks. Recommend to insert NGT and initiate tube feedings. Jevity 1.5 with a goal rate of 35ml/hr over 22 hrs to provide 1155kcals, 49g protein, 585ml free water, with 100ml flush q 4 hrs. Initiate feeds at 20ml/hr, increase by 10ml q 4 hrs until goal rate. Taper down TPN to 30ml/hr once tube feeds are started an D/C TPN orders when tube feeding is at goal. *Recommend to place PEG tube for fdc nutrition support needs. Original Note: Nutrition Follow-Up Complete: Inadequate energy intake related to insufficient parental nutrition as evidenced by current rate only meeting 56% of estimated needs. Goal:Meet estimated needs Pt current nutrition is NPO, TPN: clinimix E 04/06 @ 40ml/hr with lipids = 1182kcals, 48g protein per day. Nutrition recommendation: Continue with current plan of care Last recorded weight is 56.5 kg. Bowel Motility: +BM 05/08 Labs Reviewed: Alb:3.4, K:3.1 Meds Noted: KCL, protonix, zofran, lovenox Skin: WNL Additional Notes: Pt on TPN, lipids added to orders per recommendations. Current TPN meeting estimated needs. Continue with current plan of care. Agree with orders. Monitor TPN, diet orders/MBS, labs, wt. Follow up every Thursday and Thursday.
[2024-05-10 11:27] LABS: Glucose Point of Care 116 mg/dl (65-105)
--- NOTE | 2024-05-10 13:00 | P.PNIM_ITS ---
Progress Note: A&P Assessment and Plan (1) Arterial ischemic stroke, vertebrobasilar, brainstem, acute: Code(s): I63.219 - Cerebral infarction due to unspecified occlusion or stenosis of unspecified vertebral artery; I63.22 - Cerebral infarction due to unspecified occlusion or stenosis of basilar artery Status: Acute Assessment and Plan: MRI/CTA show arterial ischemic stroke, vertebrobasilar brainstem * hospital monitor and telemetry continuously. * Blood pressure management. -Keep the systolic blood pressure more than 200 or diastolic more than 110. Then lower blood pressure by 15% within the 1st 24 h ours. * PT/OT/ST eval and treat. * LDL 140 and hemoglobin A1c WNL. * Add statins 80 mg q.day, aspirin 81 mg g q.day/Plavix * Patient refuses statin * Barium swallow 05/07, patient failed MBS * PICC placed on 05/08 and TPN started * Speech therapy working with patient. Pt failed f/u MBS on 05/10 * Plan to place NG tube feeds while weening TPN. If patient tolerates with need a PEG. (2) Acute CVA (cerebrovascular accident): Code(s): I63.9 - Cerebral infarction, unspecified Status: Acute Assessment and Plan: See above. (3) Hypertensive urgency: Code(s): I16.0 - Hypertensive urgency Status: Acute Assessment and Plan: * 255/104 POA * Given hydralazine IV push 10 mg x 2 in the ED * IV hydralazine p.r.n. for systolic over 180 * Echocardiogram EF > 70% * EKG sinus rhythm * 05/07 procardia switched to Labetolol due to patient unable to take p.o. medications * will start to slowly lower BP * transition to oral BP medication when safely swallowing (4) Aortic stenosis: Code(s): I35.0 - Nonrheumatic aortic (valve) stenosis Status: Chronic Assessment and Plan: chronic (5) Cephalgia: Code(s): R51.9 - Headache, unspecified Status: Resolved Assessment and Plan: secondary to HTN or dehydration from vomiting? * Analgesics as needed. * Correct BP * CT Head no acute issues * MRI arterial ischemic stroke, vertebrobasilar brainstem (6) Elevated troponin I level: Code(s): R79.89 - Other specified abnormal findings of blood chemistry Status: Resolved Assessment and Plan: May be secondary to ischemic demand from hypertension * Atypical denies any chest pain or shortness of breath however presents with nausea vomiting, dizziness and hypertensive crisis * serial troponin x3 q.6 hours 0.102/Daily Trop until down trend * EKG without ischemic changes q.6 hours * cardiology consulted * continuous cardiac monitoring RESOLVED Subjective Date/time seen: 05/10/24 13:00 Interval history: patient doing well today with no complaints. Repeat modified barium swallow early done today and patient failed. Discussed with dietitian and recommending NG placement with tube feeds and then transition to PEG if patient tolerates. Exam Narrative: GENERAL: Comfortable, no acute distress HENMT: moist mucous membranes EYES: EOM intact b/l NECK: no lymphadenopathy RESPIRATORY: clear to auscultation, no increased respiratory effort CARDIO: Regular rate and rhythm, murmur present GI: soft, nontender, bowel sounds present SKIN/EXTREMITIES: no rashes, no edema, no redness or tenderness NEURO: PROM intact, answers questions appropriately, A&O x4 , upper and lower extremity strength 5/5, improved left facial droop, no slurred speech
--- NOTE | 2024-05-10 13:00 | PM.IMPN ---
Progress Note: A&P Assessment and Plan (1) Arterial ischemic stroke, vertebrobasilar, brainstem, acute: Code(s): I63.219 - Cerebral infarction due to unspecified occlusion or stenosis of unspecified vertebral artery; I63.22 - Cerebral infarction due to unspecified occlusion or stenosis of basilar artery Status: Acute Assessment and Plan: MRI/CTA show arterial ischemic stroke, vertebrobasilar brainstem electronic device monitor and telemetry continuously. Blood pressure management. -Keep the systolic blood pressure more than 200 or diastolic more than 110. Then lower blood pressure by 15% within the 1st 24 hours. PT/OT/ST eval and treat. LDL 140 and hemoglobin A1c WNL. Add statins 80 mg q.day, aspirin 81 mg g q.day/Plavix Patient refuses statin Barium swallow 05/07, patient failed MBS PICC placed on 05/08 and TPN started Speech therapy working with patient. Pt failed f/u MBS on 05/[address] NG tube feeds while weening TPN. If patient tolerates with need a PEG. (2) Acute CVA (cerebrovascular accident): Code(s): I63.9 - Cerebral infarction, unspecified Status: Acute Assessment and Plan: See above. (3) Hypertensive urgency: Code(s): I16.0 - Hypertensive urgency Status: Acute Assessment and Plan: 255/104 POA Given hydralazine IV push 10 mg x 2 in the ED IV hydralazine p.r.n. for systolic over 180 Echocardiogram EF > 70% EKG sinus rhythm 05/07 procardia switched to Labetolol due to patient unable to take p.o. medications will start to slowly lower BP transition to oral BP medication when safely swallowing (4) Aortic stenosis: Code(s): I35.0 - Nonrheumatic aortic (valve) stenosis Status: Chronic Assessment and Plan: chronic (5) Cephalgia: Code(s): R51.9 - Headache, unspecified Status: Resolved Assessment and Plan: secondary to HTN or dehydration from vomiting? Analgesics as needed. Correct BP CT Head no acute issues MRI arterial ischemic stroke, vertebrobasilar brainstem (6) Elevated troponin I level: Code(s): R79.89 - Other specified abnormal findings of blood chemistry Status: Resolved Assessment and Plan: May be secondary to ischemic demand from hypertension Atypical denies any chest pain or shortness of breath however presents with nausea vomiting, dizziness and hypertensive crisis serial troponin x3 q.6 hours 0.102/Daily Trop until down trend EKG without ischemic changes q.6 hours cardiology consulted continuous cardiac monitoring RESOLVED Subjective Date/time seen: 05/10/24 13:00 Interval history: patient doing well today with no complaints. Repeat modified barium swallow early done today and patient failed. Discussed with dietitian and recommending NG placement with tube feeds and then transition to PEG if patient tolerates. Exam Narrative: GENERAL: Comfortable, no acute distress HENMT: moist mucous membranes EYES: EOM intact b/l NECK: no lymphadenopathy RESPIRATORY: clear to auscultation, no increased respiratory effort CARDIO: Regular rate and rhythm, murmur present GI: soft, nontender, bowel sounds present SKIN/EXTREMITIES: no rashes, no edema, no redness or tenderness NEURO: PROM intact, answers questions appropriately, A&O x4 , upper and lower extremity strength 5/5, improved left facial droop, no slurred speech Objective Data Vital Signs Vital Signs: Vital Signs - 24 hr 05/09/24 14:00 05/09/24 15:23 05/09/24 16:00 Temperature 97.8 F Pulse Rate 55 L 625 H Respiratory Rate Blood Pressure 197/67 H Pulse Oximetry 98 Oxygen Delivery Room Air 05/09/24 16:00 05/09/24 18:00 05/09/24 21:27 Temperature 98.1 F Pulse Rate 55 L 60 61 Respiratory Rate 18 Blood Pressure 194/83 H Pulse Oximetry 97 Oxygen Delivery 05/10/24 00:19 05/09/24 20:00 05/09/24 22:00 Temperature 97 F L P
--- NOTE | 2024-05-10 13:11 | PCDIET ---
Tube feeding recommendations: Jevity 1.5 with a goal rate of 35ml/hr over 22 hrs to provide 1155kcals, 49g protein, 585ml free water, with 100ml flush q 4 hrs. Initiate feeds at 20ml/hr, increase by 10ml q 4 hrs until goal rate. Taper down TPN to 30ml/hr once tube feeds are started an D/C TPN orders when tube feeding is at goal. 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
[2024-05-10 13:48] LABS: Triglycerides 163 mg/dL (<150)
--- NOTE | 2024-05-10 14:29 | PCOTNOTE ---
Attempted to see Patient this P.M. Patient had just returned to bed and completed bathing with LOAN UNDER[employer]ITER. Patient declined session, requested to try back tomorrow.
[2024-05-10] MEDS: AMINO ACIDS 5%/DEXTROSE 15% 2,000 ML with MULTIVITAMINS-12 INJ VIAL 1 2.5 ML, MULTIVITA... 40 ML IV CONT (14:56)
[2024-05-10] MEDS: FAT EMULSIONS IV 20% 250 ML 20.83 ML IVPB (14:57)
--- NOTE | 2024-05-10 15:05 | PCSTNOTE ---
Please refer to the Modified Barium Swallow Evaluation in the EMR.
[2024-05-10 18:32] LABS: Glucose Point of Care 118 mg/dl (65-105)
[2024-05-10] MEDS: LABETALOL HCL INJ 100 MG/20 ML VIAL 20 MG IV PUSH (20:13)
[2024-05-11] VITALS (9 sets, daily range): BP systolic 133–179; BP diastolic 53–77; PULSE 56–78; RESP 16–18; TEMP 36–37.2; O2SAT 95–100
[2024-05-11] MEDS: CENTRAL LINE FLUSH 10 ML IV PUSH ×3 (04:50→21:26)
[2024-05-11 05:06] LABS: Hemoglobin 14.5 g/dL (12.0-15.0); Mean Corpuscular Hemoglobin 30.3 pg (26-34); Mean Corpuscular Volume 92.1 fl (80-100); Mean Platelet Volume 10.7 fl (7.4-10.4); Platelet Count Result 199 k/mm3 (150-375); Red Blood Count 4.78 M/mm3 (4.2-5.4); Red Cell Distribution Width 12.5 % (11.5-14.5); White Blood Count 8.2 K/mm3 (4.5-10.0)
[2024-05-11 05:13] LABS: Glucose Point of Care 178 mg/dl (65-105)
[2024-05-11 05:21] LABS: Alanine Aminotransferase 76 U/L (6-35); Albumin Level 3.4 g/dL (3.5-5.1); Alkaline Phosphatase 58 U/L (38-126); Anion Gap 5 mmol/L (4-12); Aspartate Amino Transferase 68 U/L (14-36); Bilirubin,Total 0.5 mg/dL (0.2-1.3); Blood Urea Nitrogen 16 mg/dL (7-17); Calcium 8.9 mg/dL (8.4-10.2); Carbon Dioxide 30 mmol/L (22-30); Chloride 105 mmol/L (98-107); Estimated Glomerular Filt Rate > 60; Glucose 150 mg/dL (65-110); Phosphorus 3.3 mg/dL (2.5-4.5); Potassium 3.2 mmol/L (3.4-5.0); Sodium 140 mmol/L (137-145)
[2024-05-11] MEDS: ENOXAPARIN 40 MG/0.4 ML SYRINGE SUB-Q (10:08)
[2024-05-11] MEDS: PANTOPRAZOLE SODIUM IV 40 MG VIAL IV PUSH (10:08)
--- NOTE | 2024-05-11 10:39 | PCDIET ---
Nutrition note: tube feeding at goal Jevity 1.5 @ 35 ml/h. Tolerating well. Modify flushes from 30 ml to 100 ml q hours. Communication with provider and RN. Continue to follow.
[2024-05-11 10:45] LABS: Influenza A QL RT-PCR Negative (Negative); Influenza B QL RT-PCR Negative (Negative); RSV RNA, RT-PCR Negative (Negative); SARS-CoV-2 RNA PCR Negative (Negative)
[2024-05-11] MEDS: CLOPIDOGREL BISULFATE 75 MG TABLET FEED TUBE (12:11)
[2024-05-11] MEDS: POTASSIUM CHLORIDE 20 MEQ PACKET (FOR LIQUID) 40 MEQ FEED TUBE (12:11)
--- NOTE | 2024-05-11 13:35 | P.PNIM_ITS ---
Progress Note: A&P Assessment and Plan (1) Arterial ischemic stroke, vertebrobasilar, brainstem, acute: Code(s): I63.219 - Cerebral infarction due to unspecified occlusion or stenosis of unspecified vertebral artery; I63.22 - Cerebral infarction due to unspecified occlusion or stenosis of basilar artery Status: Acute Assessment and Plan: MRI/CTA show arterial ischemic stroke, vertebrobasilar brainstem * oil burner and telemetry continuously. * Blood pressure management. -Keep the systolic blood pressure more than 200 or diastolic more than 110. Then lower blood pressure by 15% within the 1st 24 h ours. * PT/OT/ST eval and treat. * LDL 140 and hemoglobin A1c WNL. * Add statins 80 mg q.day, aspirin 81 mg g q.day/Plavix * Patient refuses statin * Barium swallow 05/07, patient failed MBS * PICC placed on 05/08 and TPN started * Speech therapy working with patient. Pt failed f/u MBS on 05/10 * NG tube feeds started on 05/10 and TPN discontinued. * GI consulted for PED 05/11 (2) Acute CVA (cerebrovascular accident): Code(s): I63.9 - Cerebral infarction, unspecified Status: Acute Assessment and Plan: See above. (3) Hypertensive urgency: Code(s): I16.0 - Hypertensive urgency Status: Resolved Assessment and Plan: * 255/104 POA * Given hydralazine IV push 10 mg x 2 in the ED * IV hydralazine p.r.n. for systolic over 180 * Echocardiogram EF > 70% * EKG sinus rhythm * 05/07 procardia switched to Labetolol due to patient unable to take p.o. medications * will start to slowly lower BP * transition to oral BP medication when safely swallowing Resolved. (4) Aortic stenosis: Code(s): I35.0 - Nonrheumatic aortic (valve) stenosis Status: Chronic Assessment and Plan: chronic (5) Cephalgia: Code(s): R51.9 - Headache, unspecified Status: Resolved Assessment and Plan: secondary to HTN or dehydration from vomiting? * Analgesics as needed. * Correct BP * CT Head no acute issues * MRI arterial ischemic stroke, vertebrobasilar brainstem Resolved. (6) Elevated troponin I level: Code(s): R79.89 - Other specified abnormal findings of blood chemistry Status: Resolved Assessment and Plan: May be secondary to ischemic demand from hypertension * Atypical denies any chest pain or shortness of breath however presents with nausea vomiting, dizziness and hypertensive crisis * serial troponin x3 q.6 hours 0.102/Daily Trop until down trend * EKG without ischemic changes q.6 hours * cardiology consulted * continuous cardiac monitoring RESOLVED Subjective Date/time seen: 05/11/24 13:35 Interval history: Patient states that she is having some left-sided sinus congestion. patient's daughter tested positive for COVID on Thursday. I test the patient for COVID, flu and RSV which all came back negative. I started patient on some Mucinex for her sinus congestion. She is tolerating her p.o. feeds well and denies any nausea vomiting. Consult GI for PEG placement. Exam Narrative: GENERAL: Comfortable, no acute distress HENMT: moist mucous membranes EYES: EOM intact b/l NECK: no lymphadenopathy RESPIRATORY: clear to auscultation, no increased respiratory effort CARDIO: Regular rate and rhythm, murmur present GI: soft, nontender, bowel sounds present SKIN/EXTREMITIES: no rashes, no edema, no redness or tenderness NEURO
--- NOTE | 2024-05-11 13:35 | PM.IMPN ---
Progress Note: A&P Assessment and Plan (1) Arterial ischemic stroke, vertebrobasilar, brainstem, acute: Code(s): I63.219 - Cerebral infarction due to unspecified occlusion or stenosis of unspecified vertebral artery; I63.22 - Cerebral infarction due to unspecified occlusion or stenosis of basilar artery Status: Acute Assessment and Plan: MRI/CTA show arterial ischemic stroke, vertebrobasilar brainstem pvc monitor and telemetry continuously. Blood pressure management. -Keep the systolic blood pressure more than 200 or diastolic more than 110. Then lower blood pressure by 15% within the 1st 24 hours. PT/OT/ST eval and treat. LDL 140 and hemoglobin A1c WNL. Add statins 80 mg q.day, aspirin 81 mg g q.day/Plavix Patient refuses statin Barium swallow 05/07, patient failed MBS PICC placed on 05/08 and TPN started Speech therapy working with patient. Pt failed f/u MBS on 05/10 NG tube feeds started on 05/10 and TPN discontinued. GI consulted for PED 05/11 (2) Acute CVA (cerebrovascular accident): Code(s): I63.9 - Cerebral infarction, unspecified Status: Acute Assessment and Plan: See above. (3) Hypertensive urgency: Code(s): I16.0 - Hypertensive urgency Status: Resolved Assessment and Plan: 255/104 POA Given hydralazine IV push 10 mg x 2 in the ED IV hydralazine p.r.n. for systolic over 180 Echocardiogram EF > 70% EKG sinus rhythm 05/07 procardia switched to Labetolol due to patient unable to take p.o. medications will start to slowly lower BP transition to oral BP medication when safely swallowing Resolved. (4) Aortic stenosis: Code(s): I35.0 - Nonrheumatic aortic (valve) stenosis Status: Chronic Assessment and Plan: chronic (5) Cephalgia: Code(s): R51.9 - Headache, unspecified Status: Resolved Assessment and Plan: secondary to HTN or dehydration from vomiting? Analgesics as needed. Correct BP CT Head no acute issues MRI arterial ischemic stroke, vertebrobasilar brainstem Resolved. (6) Elevated troponin I level: Code(s): R79.89 - Other specified abnormal findings of blood chemistry Status: Resolved Assessment and Plan: May be secondary to ischemic demand from hypertension Atypical denies any chest pain or shortness of breath however presents with nausea vomiting, dizziness and hypertensive crisis serial troponin x3 q.6 hours 0.102/Daily Trop until down trend EKG without ischemic changes q.6 hours cardiology consulted continuous cardiac monitoring RESOLVED Subjective Date/time seen: 05/11/24 13:35 Interval history: Patient states that she is having some left-sided sinus congestion. patient's daughter tested positive for COVID on Thursday. I test the patient for COVID, flu and RSV which all came back negative. I started patient on some Mucinex for her sinus congestion. She is tolerating her p.o. feeds well and denies any nausea vomiting. Consult GI for PEG placement. Exam Narrative: GENERAL: Comfortable, no acute distress HENMT: moist mucous membranes EYES: EOM intact b/l NECK: no lymphadenopathy RESPIRATORY: clear to auscultation, no increased respiratory effort CARDIO: Regular rate and rhythm, murmur present GI: soft, nontender, bowel sounds present SKIN/EXTREMITIES: no rashes, no edema, no redness or tenderness NEURO: PROM intact, answers questions appropriately, A&O x4 , upper and lower extremity strength 5/5, improved left facial droop, no slurred speech Objective Data Vital Signs Vital Signs: Vital Signs - 24 hr 05/10/24 14:00 05/10/24 16:00 05/10/24 16:00 Temperature 97.7 F Pulse Rate 61 61 Respiratory Rate 16 Blood Pressure 213/79 H Pulse Oximetry 97 Oxygen Delivery Room Air 05/10/24 16:00 05/10/24 18:00 05/10/24 19:52 Temperature 99.7 F H Pulse Rate 56 L 62 61 Respiratory
[2024-05-11 17:41] LABS: Glucose Point of Care 96 mg/dl (65-105)
--- NOTE | 2024-05-11 18:24 | WPDGICN ---
Assessment and Plan Assessment and plan (1) Arterial ischemic stroke, vertebrobasilar, brainstem, acute: Code(s): I63.219 - Cerebral infarction due to unspecified occlusion or stenosis of unspecified vertebral artery; I63.22 - Cerebral infarction due to unspecified occlusion or stenosis of basilar artery Status: Acute Assessment and Plan: with subsequent difficulty swallowing, again failed MBS evaluation will proceed with peg placement tomorrow (2) Dizziness: Code(s): R42 - Dizziness and giddiness Status: Acute (3) Hypertensive urgency: Code(s): I16.0 - Hypertensive urgency Status: Resolved Assessment and Plan: controlled now (4) Nausea & vomiting: Code(s): R11.2 - Nausea with vomiting, unspecified Status: Acute Assessment and Plan: resolved (5) Dysphagia: Code(s): R13.10 - Dysphagia, unspecified Status: Acute GI Consult Note Consult date/time: 05/11/24 18:24 Reason for consult: dysphagia HPI: Paralea Y Constantin is a 83 year old female admitted few days ago with new onset of severe headache, dizziness, and vomiting, also was treated for HTN urgency and neurology consulted. MRI showed Acute infarct at the posterolateral left medulla likely secondary to occlusion of the left vertebral artery and treated medically, she has not been successful to pass MBS and currently fed by NGT, still unable to safely eat and we are called to place PEG tube. She awake and alert, agreeable to have procedure tomorrow. Review of Systems Constitutional: Constitutional: Denies chills Eyes: Eyes: Reports no additional eye complaints ENT: Reports Normal hearing present Cardiovascular: Cardiovascular: Denies chest pain Respiratory: Respiratory: Denies cough Gastrointestinal: Gastrointestinal: Reports no additional gastrointestinal complaints Musculoskeletal: Musculoskeletal: Denies neck pain Integumentary/Breasts: Skin/Breast: Denies rash Neurologic: Reports vertigo Psychiatric: Psychiatric: Denies behavioral changes [facility] Past Medical History Medical History (Updated 05/11/24 @ 18:27 by Jamie Traore MD) Arterial ischemic stroke, vertebrobasilar, brainstem, acute Dysphagia Wallenberg syndrome Family History Family History Other Unknown family medical history Social History Social History Smoking status: Never smoker Alcohol intake: never Substance use: never Substance use type: does not use Do You Feel Safe in your Home?: Yes Lack of Transportation: No Lack of Food: Never True Current Housing: I Have Housing Concerned About Future Housing: No Difficulty Paying Gas/Electric Bills: No Difficulty Paying for Meds: No Currently Unemployed: No Education: High School Diploma/GED Difficulty w/ Childcare or Family Care: No Spiritual care concerns: No Meds Home Medications and Allergies Home Medications Medication Instructions Recorded Confirmed Type multivit with minerals-iron 18 1 tablet PO DAILY 05/05/24 05/05/24 History mg-folic ac 400 mcg-vit K 25 mcg tablet (Adults Multivitamin) Allergies Allergy/AdvReac Type Severity Reaction Status Date / Time Penicillins Allergy Severe Anaphylaxis Verified 05/04/24 22:58 codeine AdvReac Intermediate Irritable Verified 05/04/24 22:58 Vital Signs Vital Signs - 24 hr 05/10/24 19:52 05/10/24 22:00 05/10/24 22:55 Temperature 99.7 F H Pulse Rate 61 Respiratory Rate 18 Blood Pressure 210/80 H 154/67 H Pulse Oximetry 98 98 Oxygen Delivery Room Air 05/10/24 20:00 05/10/24 22:00 05/11/24 00:00 Temperature Pulse Rate 64 58 L 60 Respiratory Rate Blood Pressure Pulse Oximetry Oxygen Delivery 05/11/24 00:00 05/11/24 00:47 05/11/24 01:59 Temperature 97.6 F Pulse Rate 57 L 58 L
[2024-05-11] MEDS: guaiFENesin 600 MG/DEXTROMETHORPHAN 30 MG SR TAB 12 HR 1 TAB PO (21:15)
[2024-05-11 23:14] LABS: Glucose Point of Care 127 mg/dl (65-105)
[2024-05-12] VITALS (9 sets, daily range): BP systolic 107–166; BP diastolic 59–77; PULSE 60–72; RESP 14–18; TEMP 36.1–36.9; O2SAT 95–98
--- NOTE | 2024-05-12 | PC.NURSE ---
RN changed pt feeding tube since it was dated for 05/10 with a time of 1999. RN made the initial change at 0000 on 05/12 and will change it the 1.5 feed at 0600.
[2024-05-12 05:41] LABS: Glucose Point of Care 146 mg/dl (65-105)
[2024-05-12] MEDS: CENTRAL LINE FLUSH 10 ML IV PUSH ×3 (06:26→20:37)
[2024-05-12] MEDS: CENTRAL LINE FLUSH 20 ML IV PUSH (08:10)
[2024-05-12 08:44] LABS: Hematocrit 45.6 % (37.0-47.0); Mean Corpuscular HGB Conc 32.9 g/dl (32-36); Mean Corpuscular Hemoglobin 30.7 pg (26-34); Mean Corpuscular Volume 93.3 fl (80-100); Mean Platelet Volume 11.3 fl (7.4-10.4); Platelet Count Result 200 k/mm3 (150-375); Red Blood Count 4.89 M/mm3 (4.2-5.4); Red Cell Distribution Width 12.8 % (11.5-14.5); White Blood Count 8.7 K/mm3 (4.5-10.0)
[2024-05-12 08:50] LABS: Alanine Aminotransferase 75 U/L (6-35); Albumin Level 3.6 g/dL (3.5-5.1); Alkaline Phosphatase 84 U/L (38-126); Anion Gap 4 mmol/L (4-12); Aspartate Amino Transferase 47 U/L (14-36); Bilirubin,Total 0.4 mg/dL (0.2-1.3); Blood Urea Nitrogen 19 mg/dL (7-17); Calcium 9.2 mg/dL (8.4-10.2); Carbon Dioxide 33 mmol/L (22-30); Chloride 104 mmol/L (98-107); Estimated Glomerular Filt Rate > 60; Glucose 109 mg/dL (65-110); Phosphorus 4.9 mg/dL (2.5-4.5); Potassium 3.9 mmol/L (3.4-5.0); Sodium 141 mmol/L (137-145); Triglycerides 127 mg/dL (<150)
[2024-05-12] MEDS: PANTOPRAZOLE SODIUM IV 40 MG VIAL IV PUSH (09:00)
--- NOTE | 2024-05-12 10:20 | PC.NURSE ---
To GI lab via [facility].
[2024-05-12] MEDS: LACTATED RINGERS 1,000 ML 150 ML IV CONT (10:47)
[2024-05-12] MEDS: levoFLOXacin 250 MG/D5W 50 ML 250 MG/50 ML BAG 50 MG IVPB (11:30)
--- NOTE | 2024-05-12 11:39 | WPDANESEPPF ---
Anes - Initial Pre Proc Eval Procedure: Operation Date: 05/12/24 13:00 Proposed Procedures p Esophagogastroduodenoscopy - Jamie Traore MD s Percutaneous Endoscopic Gastrostomy - Jamie Traore MD Date/Time: 05/12/24 11:39 Surgeon: Elena Hirsch APRN Pre Op Diagnosis: Intractable nausea/vomiting/headache Patient Data Age: 83 Gender: F Height: 1.47 m Weight: 56.5 kg Last Vital Signs Temp 36.3 C L 05/12/24 10:30 Pulse 60 05/12/24 10:30 Resp 16 05/12/24 10:30 BP 166/71 H 05/12/24 10:30 Pulse Ox 97 05/12/24 10:30 O2 Del Method Room Air 05/12/24 10:30 FiO2 21 05/08/24 16:00 Allergies Allergy/AdvReac Type Severity Reaction Status Date / Time Penicillins Allergy Severe Anaphylaxis Verified 05/12/24 10:41 codeine AdvReac Intermediate Irritable Verified 05/12/24 10:41 Home Medications Medication Instructions Recorded Confirmed Type multivit with minerals-iron 18 1 tablet PO DAILY 05/05/24 05/12/24 History mg-folic ac 400 mcg-vit K 25 mcg tablet (Adults Multivitamin) Laboratory Tests 05/11/24 05/11/24 05/12/24 17:38 23:10 05:37 WBC RBC Hgb Hct MCV MCH MCHC RDW Plt Count MPV Sodium Potassium Chloride Carbon Dioxide Anion Gap BUN Creatinine Estim Creat Clear Calc Estimated GFR Glucose POC Capillary Glucose 96 mg/dl 127 H mg/dl 146 H mg/dl (65-105) (65-105) (65-105) Calcium Phosphorus Magnesium Total Bilirubin AST ALT Alkaline Phosphatase Total Protein Albumin Triglycerides 05/12/24 08:13 WBC 8.7 K/mm3 (4.5-10.0) RBC 4.89 M/mm3 (4.2-5.4) Hgb 15.0 g/dL (12.0-15.0) Hct 45.6 % (37.0-47.0) MCV 93.3 fl (80-100) MCH 30.7 pg (26-34) MCHC 32.9 g/dl (32-36) RDW 12.8 % (11.5-14.5) Plt Count 200 k/mm3 (150-375) MPV 11.3 H fl (7.4-10.4) Sodium 141 mmol/L (137-145) Potassium 3.9 mmol/L (3.4-5.0) Chloride 104 mmol/L (98-107) Carbon Dioxide 33 H mmol/L (22-30) Anion Gap 4 mmol/L (4-12) BUN 19 H mg/dL (7-17) Creatinine 0.50 L mg/dL (0.7-1.0) Estim Creat Clear Calc Not Reportable Estimated GFR > 60 (59 - ) Glucose 109 mg/dL (65-110) POC Capillary Glucose Calcium 9.2 mg/dL (8.4-10.2) Phosphorus 4.9 H mg/dL (2.5-4.5) Magnesium 2.0 mg/dL (1.6-2.3) Total Bilirubin 0.4 mg/dL (0.2-1.3) AST 47 H U/L (14-36) ALT 75 H U/L (6-35) Alkaline Phosphatase 84 U/L (38-126) Total Protein 6.0 L g/dL (6.3-8.2) Albumin 3.6 g/dL (3.5-5.1) Triglycerides 127 mg/dL (<150) Patient hx anesthesia problems: none Family hx anesthesia problems: none Results Review: All pre-operative results and documents have been reviewed as part of the pre-operative evaluation. [facility] Past Medical History Medical History (Updated 05/12/24 @ 11:41 by Deejay Johnston DO) Aortic stenosis moderate Arterial ischemic stroke, vertebrobasilar, brainstem, acute Dysphagia Hypertension Wallenberg syndrome Family History Family History Other Unknown family medical history Social History Social History Smoking status: Never smoker Alcohol intake: never Substance use: never Substance use type: does not use Do You Feel Safe in your Home?: Yes Lack of Transportation: No Lack of Food: Never True Current Housing: I Have Housing Concerned About Future Housing: No Difficulty Paying Gas/El
[2024-05-12] MEDS: BENZOCAINE (*SP) 60 ML SPRAY CAN (HURRICAINE) 1 SPRAY MUCOUS MEM (12:18)
--- NOTE | 2024-05-12 13:15 | PC.NURSE ---
Back from GI Lab via stretcher.
--- NOTE | 2024-05-12 13:29 | PCDIET ---
Physician consult for tube feedings. Spoke with nurse, DARREN Green. Plans to restart tube feedings of Jevity 1.5 goal rate 35 ml/hr with flush 100 ml q 4 hours in 6 hours. Following.
[2024-05-12] MEDS: IBUPROFEN IV 800 MG/200 ML 800 MG/200 ML BAG 400 MG IVPB ×2 (13:45→20:43)
--- NOTE | 2024-05-12 13:50 | P.PNIM_ITS ---
Progress Note: A&P Assessment and Plan (1) Arterial ischemic stroke, vertebrobasilar, brainstem, acute: Code(s): I63.219 - Cerebral infarction due to unspecified occlusion or stenosis of unspecified vertebral artery; I63.22 - Cerebral infarction due to unspecified occlusion or stenosis of basilar artery Status: Acute Assessment and Plan: MRI/CTA show arterial ischemic stroke, vertebrobasilar brainstem * monitoring specialist and telemetry continuously. * Blood pressure management - keep the systolic blood pressure more than 200 or diastolic more than 110. Then lower blood pressure by 15% within the 1st 24 hours. * PT/OT/ST eval and treat. * LDL 140 and hemoglobin A1c WNL. * Add statins 80 mg q.day, aspirin 81 mg g q.day/Plavix * Patient refuses statin * Barium swallow 05/07, patient failed MBS * PICC placed on 05/08 and TPN started * Speech therapy working with patient. Pt failed f/u MBS on 05/10 * NG tube feeds started on 05/10 and TPN discontinued. * GI consulted for PEG placement. Placed on 05/12. (2) Acute CVA (cerebrovascular accident): Code(s): I63.9 - Cerebral infarction, unspecified Status: Acute Assessment and Plan: See above. (3) Hypertensive urgency: Code(s): I16.0 - Hypertensive urgency Status: Resolved Assessment and Plan: * 255/104 POA * Given hydralazine IV push 10 mg x 2 in the ED * IV hydralazine p.r.n. for systolic over 180 * Echocardiogram EF > 70% * EKG sinus rhythm * 05/07 procardia switched to Labetolol due to patient unable to take p.o. medications * will start to slowly lower BP * transition to oral BP medication when safely swallowing Resolved. (4) Aortic stenosis: Code(s): I35.0 - Nonrheumatic aortic (valve) stenosis Status: Chronic Assessment and Plan: chronic (5) Cephalgia: Code(s): R51.9 - Headache, unspecified Status: Resolved Assessment and Plan: secondary to HTN or dehydration from vomiting? * Analgesics as needed. * Correct BP * CT Head no acute issues * MRI arterial ischemic stroke, vertebrobasilar brainstem Resolved. (6) Elevated troponin I level: Code(s): R79.89 - Other specified abnormal findings of blood chemistry Status: Resolved Assessment and Plan: May be secondary to ischemic demand from hypertension * Atypical denies any chest pain or shortness of breath however presents with nausea vomiting, dizziness and hypertensive crisis * serial troponin x3 q.6 hours 0.102/Daily Trop until down trend * EKG without ischemic changes q.6 hours * cardiology consulted * continuous cardiac monitoring RESOLVED Subjective Date/time seen: 05/12/24 13:50 Interval history: Patient complaining of left-sided sinus pain. She is wanting some antibiotics for this. Will get a CT of the sinuses before initiating any treatment. I did start her on some Mucinex to help with the drainage. She is tolerating her tube feeds well. Plan for PEG placement today. Hopeful for discharge tomorrow. Exam Narrative: GENERAL: Comfortable, no acute distress HENMT: moist mucous membranes RESPIRATORY: clear to auscultation, no increased respiratory effort CARDIO: Regular rate and rhythm, murmur present GI: soft, nontender, bowel sounds present SKIN/EXTREMITIES: no rashes, no edema, no redness or tenderness NEURO: PROM intact, answers questions appropriately, A&O x4 , upper and lower extremity strength 5/5
--- NOTE | 2024-05-12 13:50 | PCSTNOTE ---
Patient not seen today as she has a) met frequency orders, but also b) in endoscopy have stomach tube inserted. Will continue plan of care.
--- NOTE | 2024-05-12 13:50 | PM.IMPN ---
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 Blood pressure management - keep the systolic blood pressure more than 200 or diastolic more than 110. Then lower blood pressure by 15% within the 1st 24 hours. PT/OT/ST eval and treat. LDL 140 and hemoglobin A1c WNL. Add statins 80 mg q.day, aspirin 81 mg g q.day/Plavix Patient refuses statin Barium swallow 05/07, patient failed MBS PICC placed on 05/08 and TPN started Speech therapy working with patient. Pt failed f/u MBS on 05/10 NG tube feeds started on 05/10 and TPN discontinued. GI consulted for PEG placement. Placed on 05/12. (2) Acute CVA (cerebrovascular accident): Code(s): I63.9 - Cerebral infarction, unspecified Status: Acute Assessment and Plan: See above. (3) Hypertensive urgency: Code(s): I16.0 - Hypertensive urgency Status: Resolved Assessment and Plan: 255/104 POA Given hydralazine IV push 10 mg x 2 in the ED IV hydralazine p.r.n. for systolic over 180 Echocardiogram EF > 70% EKG sinus rhythm 05/07 procardia switched to Labetolol due to patient unable to take p.o. medications will start to slowly lower BP transition to oral BP medication when safely swallowing Resolved. (4) Aortic stenosis: Code(s): I35.0 - Nonrheumatic aortic (valve) stenosis Status: Chronic Assessment and Plan: chronic (5) Cephalgia: Code(s): R51.9 - Headache, unspecified Status: Resolved Assessment and Plan: secondary to HTN or dehydration from vomiting? Analgesics as needed. Correct BP CT Head no acute issues MRI arterial ischemic stroke, vertebrobasilar brainstem Resolved. (6) Elevated troponin I level: Code(s): R79.89 - Other specified abnormal findings of blood chemistry Status: Resolved Assessment and Plan: May be secondary to ischemic demand from hypertension Atypical denies any chest pain or shortness of breath however presents with nausea vomiting, dizziness and hypertensive crisis serial troponin x3 q.6 hours 0.102/Daily Trop until down trend EKG without ischemic changes q.6 hours cardiology consulted continuous cardiac monitoring RESOLVED Subjective Date/time seen: 05/12/24 13:50 Interval history: Patient complaining of left-sided sinus pain. She is wanting some antibiotics for this. Will get a CT of the sinuses before initiating any treatment. I did start her on some Mucinex to help with the drainage. She is tolerating her tube feeds well. Plan for PEG placement today. Hopeful for discharge tomorrow. Exam Narrative: GENERAL: Comfortable, no acute distress HENMT: moist mucous membranes RESPIRATORY: clear to auscultation, no increased respiratory effort CARDIO: Regular rate and rhythm, murmur present GI: soft, nontender, bowel sounds present SKIN/EXTREMITIES: no rashes, no edema, no redness or tenderness NEURO: PROM intact, answers questions appropriately, A&O x4 , upper and lower extremity strength 5/5, improved left facial droop, no slurred speech Objective Data Vital Signs Vital Signs: Vital Signs - 24 hr 05/11/24 20:08 05/12/24 05:31 05/12/24 10:30 Temperature 98.9 F 98.4 F 97.4 F L Pulse Rate 69 63 60 Respiratory Rate 16 18 16 Blood Pressure 135/54 L 152/59 H 166/71 H Pulse Oximetry 98 98 97 Oxygen Delivery Room Air 05/12/24 08:00 05/12/24 12:35 05/12/24 12:45 Temperature Pulse Rate 72 71 Respiratory Rate 17 18 Blood Pressure 107/62 122/77 Puls
[2024-05-12 18:25] LABS: Glucose Point of Care 87 mg/dl (65-105)
[2024-05-12] MEDS: guaiFENesin 600 MG/DEXTROMETHORPHAN 30 MG SR TAB 12 HR 1 TAB PO (20:36)
[2024-05-13 01:00] LABS: Glucose Point of Care 123 mg/dl (65-105)
[2024-05-13 04:35] VITALS: BP 137/58; PULSE 59; RESP 16; TEMP 36.4; O2SAT 97
[2024-05-13 06:19] LABS: Glucose Point of Care 143 mg/dl (65-105)
[2024-05-13 07:35] LABS: Hematocrit 32.8 % (37.0-47.0); Hemoglobin 10.7 g/dL (12.0-15.0); Mean Corpuscular HGB Conc 32.6 g/dl (32-36); Mean Corpuscular Hemoglobin 30.7 pg (26-34); Mean Platelet Volume 11.6 fl (7.4-10.4); Platelet Count Result 140 k/mm3 (150-375); Red Blood Count 3.49 M/mm3 (4.2-5.4); Red Cell Distribution Width 12.8 % (11.5-14.5); White Blood Count 6.5 K/mm3 (4.5-10.0)
--- NOTE | 2024-05-13 08:00 | WPDANESPN ---
Anes - Prog Note Post-Op Date/Time: 05/13/24 08:00 Cardiovascular status: normal Respiratory status: normal Airway patency: baseline Mental status: baseline Post-Op hydration status: normal Vital Signs: Last Vital Signs Temp 36.4 C L 05/13/24 04:35 Pulse 59 L 05/13/24 04:35 Resp 16 05/13/24 04:35 BP 137/58 L 05/13/24 04:35 Pulse Ox 97 05/13/24 04:35 O2 Del Method Room Air 05/12/24 21:31 FiO2 21 05/12/24 20:00 Pain Score (VAS): Patient asleep, no nonverbal signs of pain present at this time. I/O: Intake & Output 05/12/24 05/13/24 05/13/24 23:59 07:59 15:59 Intake Total 200 0 Output Total 350 Balance 200 -350 Laboratory Tests 05/13/24 06:30 05/12/24 05/12/24 05/13/24 08:13 18:22 00:57 WBC 8.7 RBC 4.89 Hgb 15.0 Hct 45.6 MCV 93.3 MCH 30.7 MCHC 32.9 RDW 12.8 Plt Count 200 MPV 11.3 H Sodium 141 Potassium 3.9 Chloride 104 Carbon Dioxide 33 H Anion Gap 4 BUN 19 H Creatinine 0.50 L Estim Creat Clear Calc Not Reportable Estimated GFR > 60 Glucose 109 POC Capillary Glucose 87 123 H Calcium 9.2 Phosphorus 4.9 H Magnesium 2.0 Total Bilirubin 0.4 AST 47 H ALT 75 H Alkaline Phosphatase 84 Total Protein 6.0 L Albumin 3.6 Triglycerides 127 05/13/24 05/13/24 05/13/24 06:17 06:30 06:31 WBC 6.5 RBC 3.49 L Hgb 10.7 L D Hct 32.8 L MCV 94.0 MCH 30.7 MCHC 32.6 RDW 12.8 Plt Count 140 L MPV 11.6 H Sodium Pending Potassium Pending Chloride Pending Carbon Dioxide Pending Anion Gap Pending BUN Pending Creatinine Pending Estim Creat Clear Calc Pending Estimated GFR Pending Glucose Pending POC Capillary Glucose 143 H Calcium Pending Phosphorus Pending Magnesium Total Bilirubin Pending AST Pending ALT Pending Alkaline Phosphatase Pending Total Protein Pending Albumin Pending Triglycerides Post-procedural complaints: none Patient Feedback: Patient satisfied with anesthetic care.
[2024-05-13 08:11] LABS: Alanine Aminotransferase 56 U/L (6-35); Albumin Level 3.3 g/dL (3.5-5.1); Alkaline Phosphatase 79 U/L (38-126); Anion Gap 3 mmol/L (4-12); Aspartate Amino Transferase 35 U/L (14-36); Bilirubin,Total 0.5 mg/dL (0.2-1.3); Blood Urea Nitrogen 18 mg/dL (7-17); Calcium 8.6 mg/dL (8.4-10.2); Carbon Dioxide 34 mmol/L (22-30); Chloride 103 mmol/L (98-107); Estimated Glomerular Filt Rate > 60; Glucose 115 mg/dL (65-110); Phosphorus 4.3 mg/dL (2.5-4.5); Potassium 3.9 mmol/L (3.4-5.0); Sodium 140 mmol/L (137-145)
--- NOTE | 2024-05-13 09:31 | PCNFU ---
Nutrition Follow-Up Complete: Inadequate energy intake related to insufficient parental nutrition as evidenced by current rate only meeting 56% of estimated needs. Meet estimated needs - Goal is being met Goal: Pt current nutrition is Jevity 1.5 @ goal rate 35 ml/h with 100 ml water flushes q 4 hours. Total nutrition 100% EER, 100% estimated protein needs. Total water 1185 ml/day Nutrition recommendation: Agree with orders. If patient needs to transition to bolus feedings for rehab: Jevity 1.5, 260 ml TID with water flushes 100 ml q 4 hours. Total: 1170 kcal, 50 g protein, 593 ml free water. Total water with flushes 1193 ml/day. Last recorded weight is 53 kg. Bowel Motility: +1 BM 03/12/24 Labs Reviewed: Hgb 10.7, Hct 32.8, Alb 3.3, BUN 18, cre 0.5 Meds Noted: Protonix, zofran, lovenox Skin: No skin issues Additional Notes: tube feeding started through PEG, running at goal. Discharge planning to rehab. Bolus feeding recommendations above if needed. Monitor TPN, diet orders/MBS, labs, wt. Follow up every Thursday and Thursday.
[2024-05-13] MEDS: CENTRAL LINE FLUSH 10 ML IV PUSH ×2 (09:55→14:00)
[2024-05-13] MEDS: PANTOPRAZOLE SODIUM IV 40 MG VIAL IV PUSH (09:56)
[2024-05-13] MEDS: MULTIVIT W/ IRON, MINERALS 15 ML LIQUID (*BKC) FEED TUBE (09:56)
[2024-05-13] MEDS: ENOXAPARIN 40 MG/0.4 ML SYRINGE SUB-Q (09:56)
[2024-05-13] MEDS: guaiFENesin 600 MG/DEXTROMETHORPHAN 30 MG SR TAB 12 HR 1 TAB PO (09:56)
[2024-05-13] MEDS: CLOPIDOGREL BISULFATE 75 MG TABLET FEED TUBE (09:56)
[2024-05-13] MEDS: ASPIRIN 81 MG CHEWABLE TABLET FEED TUBE (09:56)
[2024-05-13 11:29] LABS: Glucose Point of Care 157 mg/dl (65-105)
--- NOTE | 2024-05-13 13:22 | PM.DS ---
DS: Admitting Diagnosis Discharge Date 05/13/24 Admitting Diagnosis CVA DS: Discharge Diagnosis Discharge Diagnosis (1) Arterial ischemic stroke, vertebrobasilar, brainstem, acute: Code(s): I63.219 - Cerebral infarction due to unspecified occlusion or stenosis of unspecified vertebral artery; I63.22 - Cerebral infarction due to unspecified occlusion or stenosis of basilar artery Status: Acute (2) Acute CVA (cerebrovascular accident): Code(s): I63.9 - Cerebral infarction, unspecified Status: Acute (3) Hypertensive urgency: Code(s): I16.0 - Hypertensive urgency Status: Resolved (4) Aortic stenosis: Code(s): I35.0 - Nonrheumatic aortic (valve) stenosis Status: Chronic (5) Cephalgia: Code(s): R51.9 - Headache, unspecified Status: Resolved (6) Elevated troponin I level: Code(s): R79.89 - Other specified abnormal findings of blood chemistry Status: Resolved DS: Summary Hospital Course Hospital Course: Patient is a 83 year old female that presented to the ED with complaints of dizziness with severe headache that followed with nausea and vomiting. Upon arrival to the emergency department patient's BP was 255/104. Initial CT head negative for any acute intracranial process. Patient states she has no past medical history other than hypertension however she has had controlled with her diet does take multiple supplements at home. Patient denied any visual changes, paraesthesia, weakness, numbness or tingling. Patient was given 2 doses of hydralazine IV push with improvement to BP however continued to a severe headache and nausea vomiting. Troponin which was elevated at 0.102 likely be due to ischemic demand from hypertension. MRI/CTA showed acute infarct at the posterolateral left medulla likely secondary to occlusion of the left vertebral artery where there is absent flow void. PT OT and ST ordered for the patient. Patient had a barium swallow that she failed on 05/08. PICC placed on 05/08 and TPN started. Speech therapy working with patient. Pt failed f/u MBS on 05/10. NG tube feeds started on 05/10 and TPN discontinued. GI consulted for PEG placement. Placed on 05/12. Patient was started on atorvastatin 80 mg a day, aspirin 81 mg daily and Plavix 75 mg daily. Patient tolerated PEG tube well and plan is to discharge to [facility]. Time Spent with Patient Time attestation: Total time spent providing and/or coordinating discharge services: Exam Narrative: GENERAL: Comfortable, no acute distress HENMT: moist mucous membranes RESPIRATORY: clear to auscultation, no increased respiratory effort CARDIO: Regular rate and rhythm, murmur present GI: soft, nontender, bowel sounds present SKIN/EXTREMITIES: no rashes, no edema, no redness or tenderness NEURO: PROM intact, answers questions appropriately, A&O x4 , upper and lower extremity strength 5/5, improved left facial droop, no slurred speech DS: Data Data Completed and Pending Labs on day of discharge: Labs from last 24 hours 05/13/24 05/13/24 05/13/24 11:26 07:41 06:30 WBC 6.5 RBC 3.49 L Hgb 10.7 L D Hct 32.8 L MCV 94.0 MCH 30.7 MCHC 32.6 RDW 12.8 Plt Count 140 L MPV 11.6 H Sodium 140 Potassium 3.9 Chloride 103 Carbon Dioxide 34 H Anion Gap 3 L BUN 18 H Creatinine 0.50 L Estim Creat Clear Calc Not Reportable Estimated GFR > 60 Glucose 115 H POC Capillary Glucose 157 H Calcium 8.6 Phosphorus 4.3 Total Bilirubin 0.5 AST 35 ALT 56 H Alkaline Phosphatase 79 Total Protein 6.0 L Albumin 3.3 L 05/13/24 05/13/24 05/12/24 06:17 00:57 18:22 WBC RBC Hgb Hct MCV MCH MCHC RDW Plt Count MPV Sodium Potassium Chloride Carbon Dioxide Anion Gap BUN Creatinine Estim Creat Clear Calc Estimated GFR Glucose POC Capillary Glucose 143 H 123 H 87
[2024-05-13 13:55] VITALS: BP 117/61; PULSE 63; RESP 18; TEMP 36.4; O2SAT 95
--- NOTE | 2024-05-13 14:23 | PCSTNOTE ---
The patient treatment was not able to be completed on 05/13 due to patient refusal due to being readied for discharge to rehab at this time.
[2024-05-13 18:05] LABS: Glucose Point of Care 137 mg/dl (65-105)
== END 2024-05-13 19:46 | DRG 65 ==
LOC: ANHED 05-05 02:16 → ANH2MED 05-05 02:37 → ANHIMU 05-05 17:05 → ANH3MEDSUR 05-11 12:18
PROVIDERS: Internal Medicine; Internal Medicine Critical Care Medicine; Internal Medicine Gastroenterology; Psychiatry & Neurology Neurology; Admitting Provider Internal Medicine; Emergency Provider Emergency Medicine; Visit Provider Nurse Practitioner Family
PROC: 0DJ08ZZ Inspection of Upper Intestinal Tract, Via Natural or Artificial Opening Endoscopic (ICD-10-PCS; CPT 43235; principal; 2024-05-12 13:00)
PROC: 0DH63UZ Insertion of Feeding Device into Stomach, Percutaneous Approach (ICD-10-PCS; CPT 43246; 2024-05-12 13:00)
DX: I63.212 Cerebral infarction due to unspecified occlusion or stenosis of left vertebral artery (principal); I24.89 Other forms of acute ischemic heart disease; I63.22 Cerebral infarction due to unspecified occlusion or stenosis of basilar artery; G46.3 Brain stem stroke syndrome; R13.10 Dysphagia, unspecified; I16.0 Hypertensive urgency; R29.700 NIHSS score 0; K44.9 Diaphragmatic hernia without obstruction or gangrene; K31.7 Polyp of stomach and duodenum; R51.9 Headache, unspecified; R42 Dizziness and giddiness; I35.0 Nonrheumatic aortic (valve) stenosis
CPT/HCPCS: 36415; 36569; 43246; 70450; 70486; 70496; 70498; 70551; 80053; 80061; 81001; 82306; 82607; 82746; 82948; 83036; 83735; 84100; 84443; 84466; 84478; 84484; 85025; 85027; 85610; 85730; 87086; 87637; 92526; 92610; 92611; 93005; 93306; 93308; 96374; 96375; 97110; 97112; 97162; 97165; 97530; 97535; 99285; A9270; C9113; J0360; J1200; J1650; J1741; J1885; J1956; J2405; J2704; J2765; J3480; J7030; J7040; J7042; J7050; J7120; Q9967